=== PATIENT | female | born 2000 | race American Indian/Alaskan Native ===

== ENCOUNTER 2022-01-04 15:17 | Inpatient (IN) | payer MEDICAID ==
[2022-01-04] MEDS ORDERED: MINERAL OIL 30 ML ORAL LIQD PO PRN ×2 (15:53→23:20)
[2022-01-04] MEDS ORDERED: TERBUTALINE 1 MG/1 ML INJ SUB-Q PRN (15:53)
[2022-01-04] MEDS ORDERED: ePHEDrine SULFATE 50 MG/1 ML INJ IV PRN (15:53)
[2022-01-04] MEDS ORDERED: CARBOPROST TROMETHAMINE 250 MCG/1 ML INJ IM PRN (15:53)
[2022-01-04] MEDS ORDERED: LIDOCAINE (2%) 20 MG/1 ML VIAL 20 ML MDV INFILTRATI ONE (15:53)
[2022-01-04] MEDS ORDERED: BUTORPHANOL 2 MG/1 ML INJ IV PRN (15:53)
[2022-01-04] MEDS ORDERED: miSOPROStol 200 MCG TAB PR PRN (15:53)
[2022-01-04] MEDS ORDERED: NalbUPHINE 10 MG/1 ML INJ IV PRN (15:53)
[2022-01-04] MEDS ORDERED: OXYTOCIN 10 UNIT/1 ML INJ IM PRN (15:53)
[2022-01-04] MEDS ORDERED: LOPERAMIDE 2 MG CAP PO PRN (15:53)
[2022-01-04] MEDS ORDERED: ONDANSETRON 4 MG/2 ML INJ IV PRN (15:53)
[2022-01-04] MEDS ORDERED: OXYTOCIN DRIP 30 UNITS/500 ML BAG IV SCH ×2 (16:00)
[2022-01-04] MEDS ORDERED: LACTATED RINGERS 1,000 ML IV SCH ×2 (16:00→23:30)
--- NOTE | 2022-01-04 16:22 | History and Physical Report ---
History of Present Illness Date of examination: 01/04/22 Date of admission: 01/04/22 Chief complaint: pt sent from [facility] for direct admission and induction of labor, Dr. Chen aware History of present illness: EDC Confirmation: 01/22/2022 Past History : 1 Term Births: 0 Premature Births: 0 Living Children: 0 Para: 0 Mult. Births: 0 Prev : 0 Aborta: 0 Elect. Ab: 0 Spont. Ab: 0 Ectopics: 0 Risk Factors: Smoked Tobacco Use: Never smoker Smokeless Tobacco Use: Never Passive Smoke Exposure: no HIV High Risk Behavior: no Alcohol Use: no Drug Use: no Past Medical History Reviewed and updated today: recurrent cyst on chest Past Surgical History: Reviewed and updated today: cyst removal on chest 07/20/2020 Denies any prior history of complications from anesthesia. Denies any history of surgical complications. 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 % No Dietary Counseling Reason: pn yes Past Medical History Anesthesia Complications: negative Anemia: negative Autoimmune Disorder: negative Bleeding Disorder: negative Blood Transfusions: negative Breast Disease: negative Diabetes: negative Heart Disease: negative Hypertension: negative Hepatitis/Liver Disease: negative Kidney Disease/UTI: negative Neurologic/Epilepsy/Migraines: negative Phlebitis/Varicosities: negative Psychiatric: negative Pulmonary Disease/Asthma: negative Thyroid Disease: negative 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 Denies any history of surgical complications. Abnormal PAP: negative, pt reports she has never had a pap, pt requests pap to be performed CASH Exposure: negative Infertility: negative Uterine Anomaly: negative Uterine Surgery (not C/S): negative Other Gynecologic Problems: negative Infection History Hx of STD: none HIV Risk Eval: low risk Hepatitis B Risk Eval: low risk Personal hx. of genital herpes: no Partner hx. of genital herpes: no Rash, Viral, or Febrile illness since last LMP? no Varicella/Chicken Pox Status: Previous Disease TB Risk: no Genetic History Congenital Heart Defect: Mom: no Dad: no Antonella Disease: Mom: no Dad: no Thalassemia Mom: no Dad: no Neural Tube Defect Mom: no Dad: no Down's Syndrome Mom: no Dad: no Francis-Sachs Mom: no Dad: no Sickle Cell Disease/Trait Mom: no Dad: no Hemophilia Mom: no Dad: no Muscular Dystrophy Mom: no Dad: no Cystic Fibrosis Mom: no Dad: no [place] Chorea Mom: no Dad: no Mental Retardation Mom: no Dad: no Fragile X Mom: no Dad: no Other Genetic/Chromosomal Disorder Mom: no Dad: no Child w/other defect Mom: no Dad: no Enviromental Exposures Enviromental Exposures Reviewed Xray Exposure: no Medication, drug, or alcohol use since LMP: no Chemical/Other Exposure: no Exposure to Cat Liter: no Hx of Parvovirus (Fifth Disease): no Occupational Exposure to Children: none Active Medications: vitamins () Current Allergies (reviewed today): VANCOMYCIN (Critical) Past History Past Medical History: no pertinent history, other (see HPI) Past Surgical History: other (see HPI) 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 (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) Family/Genetic History: other (see HPI) Social history: other (see HPI) - Obstetrical History Expected Date of Delivery: 01/22/22 Actual Gestation: 37 Week(s) 3 Day(s) : 1 Para: 0 Hx # Term Pregnancies: 0 Number of Pregnancies: 0 Spontaneous Abortions: 0 Induced : 0 Number of Living Children: 0 Medications and Allergies Allergies Allergy/AdvReac Type Severity Reaction Status Date / Time vancomycin Allergy Itching Verified 01/04/22 18:31 Review of Systems All systems: negative Eyes: no blurred vision, no blind spots Cardiovascular: edema, no chest pain, no shortness of breath Gastrointestinal: no abdominal pain Genitourinary: no vaginal bleeding, no leakage of fluid, no contractions Neurological: no headaches - Physical Exam Lungs: Positive: Normal air movement Abdomen: Positive: normal appearance, soft. Negative: distention, tenderness, guarding Extremities: Positive: edema (2+pitting edema BLE) - Obstetrical Cervical Dilatation: 0 (per RN) Uterine Contraction Pattern: Irregular Uterine Tone Measurement Phase: Resting Results Result Diagrams: 01/04/22 16:12 01/04/22 16:12 All other labs normal. 24hr total urine protein 690 on 01/04/22 Tests: (1) Ct, Ng, Trich vag by UMM ([id number]) Order Note: Clinical Information: SRC:VR SRC:UR Chlamydia by UMM Negative Negative *1 Gonococcus by UMM Negative Negative *2 Trich vag by [facility] Negative Negative *3 Tests: (2) Strep Gp B UMM ([id number]) ! Strep Gp B U[facility] Negative Negative *4 Tests: (1) Profile I ([id number]) HBsAg Screen Negative Negative *1 RPR Non Reactive Non Reactive *2 Rubella Antibodies, IgG 1.42 index Immune >0.99 *3 Non-immune <0.90 Equivocal 0.90 - 0.99 Immune >0.99 ABO Grouping B *4 Rh Factor Positive *5 Please note: Prior records for this patient's ABO / Rh type are not available for additional verification. Antibody Screen Negative Negative *6 WBC [H] 11.6 x10E3/uL 3.4-10.8 *7 RBC [L] 3.70 x10E6/uL 3.77-5.28 *8 Hemoglobin 11.5 g/dL 11.1-15.9 *9 Hematocrit 35.0 % 34.0-46.6 *10 MCV 95 fL 79-97 *11 MCH 31.1 pg 26.6-33.0 *12 MCHC 32.9 g/dL 31.5-35.7 *13 RDW 12.9 % 11.7-15.4 *14 Platelets 312 x10E3/uL 150-450 *15 Neutrophils 76 % Not Estab. *16 Lymphs 15 % Not Estab. *17 Monocytes 8 % Not Estab. *18 Eos 1 % Not Estab. *19 Basos 0 % Not Estab. *20 ! Immature Cells <No Reported Value> *21 Neutrophils (Absolute) [H] 8.7 x10E3/uL 1.4-7.0 *22 Lymphs (Absolute) 1.7 x10E3/uL 0.7-3.1 *23 Monocytes(Absolute) [H] 1.0 x10E3/uL 0.1-0.9 *24 Eos (Absolute) 0.1 x10E3/uL 0.0-0.4 *25 Baso (Absolute) 0.0 x10E3/uL 0.0-0.2 *26 ! Immature Granulocytes 0 % Not Estab. *27 ! Immature Grans (Abs) 0.0 x10E3/uL 0.0-0.1 *28 ! NRBC <No Reported Value> *29 Hematology Comments: <No Reported Value> *30 Tests: (2) HB Solu + Rflx Fra ([id number]) Hemoglobin (Hgb) Solubility Negative Negative *31 Tests: (3) HIV Ab/p24 Ag with Reflex ([id number]) HIV Ab/p24 Ag Screen Non Reactive Non Reactive *32 HIV Negative HIV-1/HIV-2 antibodies and HIV-1 p24 antigen were NOT detected. There is no laboratory evidence of HIV infection. Tests: (4) Gest. Diabetes 1-Hr Screen ([id number]) ! Gestational Diabetes Screen 119 mg/dL 65-139 *33 According to ADA, a glucose threshold of >139 mg/dL after 50-gram load identifies approximately 80% of women with gestational diabetes mellitus, while the sensitivity is further increased to approximately 90% by a threshold of >129 mg/dL. Tests: (5) HCV Antibody reflex to UMM ([id number]) HCV Ab <0.1 s/co ratio 0.0-0.9 *34 Assessment and Plan Pt sent from [facility] office for IOL d/t elevated blood pressures, significant proteinuria, and edema. Admission BP labile. Pt denies MEAD, vision changes, pain, and SOB. Reports positive movement. Preeclampsia risks and precautions reviewed with pt. IOL options discussed. All questions addressed. Pt verbalizes understanding and agrees to proceed with POC. Mat MORATAYA at bedside and reports SVE performed and pt cervix closed. Cervidil order given. Dr. Chen made aware. Plan discussed to start Magnesium Sulfate if BP in severe range. - Patient Problems (1) Pre-eclampsia during in third trimester, antepartum Current Visit: Yes Status: Acute Plan to address problem: monitor BP and ssx for worsening status notify provider with any changes in status and if BP systolic >160 or diastolic >105 (2) 37 weeks gestation of Current Visit: Yes Status: Acute
[2022-01-04 17:07] LABS: Hematocrit 31.2 % (30.3-42.9); Hemoglobin 10.8 gm/dl (10.1-14.3); Mean Corpuscular HGB Conc 35 % (30-34); Mean Corpuscular Volume 93 fl (79-97); Platelet Count 270 K/mm3 (140-440); Red Blood Count 3.35 M/mm3 (3.65-5.03); Red Cell Distribution Width 14.3 % (13.2-15.2)
[2022-01-04 17:27] LABS: Alanine Aminotransferase 6 units/L (7-56); Uric Acid 4.7 mg/dL (3.5-7.6)
[2022-01-04] MEDS ORDERED: DINOPROSTONE 10 MG VAG SUPP VG ONE (18:17)
[2022-01-04 20:37] LABS: Bilirubin,Urine NEG (Negative); Blood,Urine NEG (Negative); Color,Urine Amber (Yellow); Mucus,Urine 3+ /HPF; Urobilinogen,Urine < 2.0 mg/dL (<2.0)
[2022-01-04 20:38] LABS: Protein,Urine >500 mg/dL (Negative)
[2022-01-04 20:42] LABS: Creatinine,Urine 346.9 mg/dL (0.1-20.0)
[2022-01-04 20:55] LABS: Protein/Creatinine Ratio,Urine 0.81
[2022-01-04] MEDS ORDERED: MAGNESIUM SULFATE 4 GM/100 ML BAG IV ONE (23:14)
[2022-01-04] MEDS ORDERED: CALCIUM GLUCONATE 1000 MG/10 ML INJ IV ONE (23:14)
[2022-01-04] MEDS ORDERED: PROMETHAZINE 25 MG TAB PO PRN (23:21)
[2022-01-04] MEDS ORDERED: NALOXONE 0.4 MG/1 ML INJ IV PRN (23:21)
[2022-01-04] MEDS ORDERED: MAGNESIUM SULFATE 40GM/1000ML 40 GM/1,000 ML BAG IV ONE (23:22)
[2022-01-05] MEDS: fentaNYL 100 MCG/2 ML INJ IV PRN ×2 (00:18→17:15)
[2022-01-05] MEDS: MAGNESIUM SULFATE 40GM/1000ML 40 GM/1,000 ML BAG IV SCH ×2 (00:22→22:06)
[2022-01-05] MEDS: hydrALAZINE 20 MG/1 ML INJ IV PRN ×3 (00:22→06:33)
[2022-01-05] MEDS ORDERED: OXYTOCIN DRIP 30 UNITS/500 ML BAG IV SCH (07:00)
[2022-01-05] MEDS: ACETAMINOPHEN 325 MG TAB PO PRN ×3 (07:26→22:03)
--- NOTE | 2022-01-05 08:27 | Progress Note ---
Assessment and Plan cervidil removed by RN, SVE remains closed. ctx too close for cytotec. pt reports MEAD earlier now resolved with tylenol. denies visual changes or epigastric pain. discussed serial induction expectations. All questions addressed. P: Light breakfast as tolerated Pitocin per protocol Continue mag 2gm/hr Labetalol 300mg PO BID mag level q6hr Strict I&O reassess PRN - Patient Problems (1) 37 weeks gestation of Current Visit: Yes Status: Acute (2) Pre-eclampsia during in third trimester, antepartum Current Visit: Yes Status: Acute Subjective - Subjective Date of service: 01/05/22 Principal diagnosis: IUP @ 37+4; IOL for pre-e Patient reports: movement normal, contractions, no loss of fluid, no vaginal bleeding Objective - Vital Signs Vital Signs: Vital Signs - 12hr 01/04/22 01/04/22 01/04/22 20:20 20:23 20:25 Temperature Pulse Rate 89 91 H 98 H Respiratory Rate Blood Pressure 143/78 O2 Sat by Pulse 100 100 Oximetry O2 Sat by Pulse Oximetry [ Bilateral] 01/04/22 01/04/22 01/04/22 20:30 20:35 20:39 Temperature Pulse Rate 92 H 91 H 94 H Respiratory Rate Blood Pressure O2 Sat by Pulse 100 100 91 Oximetry O2 Sat by Pulse Oximetry [ Bilateral] 01/04/22 01/04/22 01/04/22 20:40 20:45 20:50 Temperature Pulse Rate 88 86 89 Respiratory Rate Blood Pressure O2 Sat by Pulse 100 99 99 Oximetry O2 Sat by Pulse Oximetry [ Bilateral] 01/04/22 01/04/22 01/04/22 20:53 20:55 21:02 Temperature Pulse Rate 87 86 70 Respiratory Rate Blood Pressure 145/94 O2 Sat by Pulse 99 78 L Oximetry O2 Sat by Pulse Oximetry [ Bilateral] 01/04/22 01/04/22 01/04/22 21:03 21:08 21:13 Temperature Pulse Rate 119 H 98 H 104 H Respiratory Rate Blood Pressure O2 Sat by Pulse 97 100 100 Oximetry O2 Sat by Pulse Oximetry [ Bilateral] 01/04/22 01/04/22 01/04/22 21:18 21:23 21:28 Temperature Pulse Rate 101 H 91 H 91 H Respiratory Rate Blood Pressure 143/97 O2 Sat by Pulse 100 97 98 Oximetry O2 Sat by Pulse Oximetry [ Bilateral] 01/04/22 01/04/22 01/04/22 21:33 21:38 21:43 Temperature Pulse Rate 90 93 H 98 H Respiratory Rate Blood Pressure O2 Sat by Pulse 98 97 98 Oximetry O2 Sat by Pulse Oximetry [ Bilateral] 01/04/22 01/04/22 01/04/22 21:48 21:53 21:54 Temperature Pulse Rate 93 H 103 H 99 H Respiratory Rate Blood Pressure 157/98 O2 Sat by Pulse 99 100 Oximetry O2 Sat by Pulse Oximetry [ Bilateral] 01/04/22 01/04/22 01/04/22 21:58 22:03 22:08 Temperature Pulse Rate 102 H 98 H 101 H Respiratory Rate Blood Pressure O2 Sat by Pulse 99 100 97 Oximetry O2 Sat by Pulse Oximetry [ Bilateral] 01/04/22 01/04/22 01/04/22 22:13 22:18 22:23 Temperature Pulse Rate 94 H 99 H 98 H Respiratory Rate Blood Pressure O2 Sat by Pulse 98 98 98 Oximetry O2 Sat by Pulse Oximetry [ Bilateral] 01/04/22 01/04/22 01/04/22 22:24 22:28 22:33 Temperature Pulse Rate 101 H 102 H 110 H Respiratory Rate Blood Pressure 142/97 O2 Sat by Pulse 98 98 Oximetry O2 Sat by Pulse Oximetry [ Bilateral] 01/04/22 01/04/22 01/04/22 22:38 22:43 22:48 Temperature Pulse Rate 98 H 104 H 106 H Respiratory Rate Blood Pressure O2 Sat by Pulse 99 98 98 Oximetry O2 Sat by Pulse Oximetry [ Bilateral] 01/04/22 01/04/22 01/04/22 22:53 22:54 22:58 Temperature Pulse Rate 99 H 96 H 105 H Respiratory Rate Blood Pressure 162/104 158/104 O2 Sat by Pulse 97 97 Oximetry O2 Sat by Pulse Oximetry [ Bilateral] 01/04/22 01/04/22 01/04/22 23:03 23:08 23:13 Temperature Pulse Rate 103 H 103 H 109 H Respiratory Rate Blood Pressure O2 Sat by Pulse 98 98 98 Oximetry O2 Sat by Pulse Oximetry [ Bilateral] 01/04/22 01/04/22 01/04/22 23:16 23:18 23:23 Temperature Pulse Rate 102 H 111 H 105 H Respiratory Rate Blood Pressure 175/116 O2 Sat by Pulse 97 97 Oximetry O2 Sat by Pulse Oximetry [ Bilateral] 01/04/22 01/04/22 01/04/22 23:28 23:33 23:38 Temperature Pulse Rate 103 H 111 H 112 H Respiratory Rate Blood Pressure O2 Sat by Pulse 98 99 99 Oximetry O2 Sat by Pulse Oximetry [ Bilateral] 01/04/22 01/04/22 01/04/22 23:43 23:48 23:53 Temperature Pulse Rate 108 H 109 H 111 H Respiratory Rate Blood Pressure 167/108 O2 Sat by Pulse 98 97 97 Oximetry O2 Sat by Pulse Oximetry [ Bilateral] 01/04/22 01/05/22 01/05/22 23:58 00:03 00:07 Temperature Pulse Rate 106 H 101 H 110 H Respiratory Rate Blood Pressure 178/100 O2 Sat by Pulse 98 100 Oximetry O2 Sat by Pulse Oximetry [ Bilateral] 01/05/22 01/05/22 01/05/22 00:08 00:12 00:13 Temperature Pulse Rate 110 H 111 H 105 H Respiratory Rate Blood Pressure 180/117 O2 Sat by Pulse 98 96 Oximetry O2 Sat by Pulse Oximetry [ Bilateral] 01/05/22 01/05/22 01/05/22 00:17 00:18 00:22 Temperature Pulse Rate 112 H 105 H 103 H Respiratory Rate Blood Pressure 167/119 175/105 O2 Sat by Pulse 96 Oximetry O2 Sat by Pulse Oximetry [ Bilateral] 01/05/22 01/05/22 01/05/22 00:23 00:27 00:28 Temperature 98.8 F Pulse Rate 103 H 102 H 101 H Respiratory Rate Blood Pressure 165/96 157/91 O2 Sat by Pulse 97 96 Oximetry O2 Sat by Pulse Oximetry [ Bilateral] 01/05/22 01/05/22 01/05/22 00:33 00:38 00:43 Temperature Pulse Rate 108 H 96 H 94 H Respiratory Rate Blood Pressure 159/83 O2 Sat by Pulse 97 98 96 Oximetry O2 Sat by Pulse Oximetry [ Bilateral] 01/05/22 01/05/22 01/05/22 00:48 00:53 00:58 Temperature Pulse Rate 102 H 99 H 93 H Respiratory Rate Blood Pressure O2 Sat by Pulse 97 97 94 Oximetry O2 Sat by Pulse Oximetry [ Bilateral] 01/05/22 01/05/22 01/05/22 01:00 01:03 01:08 Temperature Pulse Rate 100 H 97 H 95 H Respiratory Rate Blood Pressure 182/87 O2 Sat by Pulse 98 97 Oximetry O2 Sat by Pulse Oximetry [ Bilateral] 01/05/22 01/05/22 01/05/22 01:13 01:18 01:23 Temperature Pulse Rate 100 H 104 H 103 H Respiratory Rate Blood Pressure 144/73 O2 Sat by Pulse 97 99 99 Oximetry O2 Sat by Pulse Oximetry [ Bilateral] 01/05/22 01/05/22 01/05/22 01:28 01:33 01:38 Temperature Pulse Rate 99 H 96 H 108 H Respiratory Rate Blood Pressure 148/83 O2 Sat by Pulse 98 98 98 Oximetry O2 Sat by Pulse Oximetry [ Bilateral] 01/05/22 01/05/22 01/05/22 01:43 01:48 01:53 Temperature Pulse Rate 100 H 106 H 105 H Respiratory Rate Blood Pressure 148/83 O2 Sat by Pulse 97 98 98 Oximetry O2 Sat by Pulse Oximetry [ Bilateral] 01/05/22 01/05/22 01/05/22 01:58 02:00 02:03 Temperature Pulse Rate 107 H 104 H 104 H Respiratory Rate Blood Pressure 132/80 O2 Sat by Pulse 98 97 Oximetry O2 Sat by Pulse Oximetry [ Bilateral] 01/05/22 01/05/22 01/05/22 02:08 02:13 02:18 Temperature Pulse Rate 99 H 101 H 101 H Respiratory Rate Blood Pressure 136/78 O2 Sat by Pulse 97 97 97 Oximetry O2 Sat by Pulse Oximetry [ Bilateral] 01/05/22 01/05/22 01/05/22 02:23 02:28 02:29 Temperature Pulse Rate 101 H 101 H 107 H Respiratory Rate Blood Pressure 136/87 O2 Sat by Pulse 96 97 Oximetry O2 Sat by Pulse Oximetry [ Bilateral] 01/05/22 01/05/22 01/05/22 02:33 02:38 02:43 Temperature Pulse Rate 108 H 107 H 112 H Respiratory Rate Blood Pressure O2 Sat by Pulse 99 99 98 Oximetry O2 Sat by Pulse Oximetry [ Bilateral] 01/05/22 01/05/22 01/05/22 02:44 02:48 02:53 Temperature Pulse Rate 109 H 103 H 106 H Respiratory Rate Blood Pressure 138/83 O2 Sat by Pulse 94 98 97 Oximetry O2 Sat by Pulse Oximetry [ Bilateral] 01/05/22 01/05/2201/05/22 02:58 03:00 03:03 Temperature Pulse Rate 105 H 103 H 99 H Respiratory Rate Blood Pressure 165/101 O2 Sat by Pulse 99 94 98 Oximetry O2 Sat by Pulse Oximetry [ Bilateral] 01/05/22 01/05/22 01/05/22 03:08 03:13 03:14 Temperature Pulse Rate 97 H 100 H 108 H Respiratory Rate Blood Pressure 134/77 O2 Sat by Pulse 97 98 Oximetry O2 Sat by Pulse Oximetry [ Bilateral] 01/05/22 01/05/22 01/05/22 03:18 03:23 03:28 Temperature Pulse Rate 109 H 102 H 105 H Respiratory Rate Blood Pressure 133/79 O2 Sat by Pulse 98 97 97 Oximetry O2 Sat by Pulse Oximetry [ Bilateral] 01/05/22 01/05/22 01/05/22 03:33 03:38 03:43 Temperature Pulse Rate 104 H 100 H 109 H Respiratory Rate Blood Pressure 140/73 O2 Sat by Pulse 97 97 97 Oximetry O2 Sat by Pulse Oximetry [ Bilateral] 01/05/22 01/05/22 01/05/22 03:48 03:53 03:58 Temperature Pulse Rate 98 H 107 H 107 H Respiratory Rate Blood Pressure O2 Sat by Pulse 97 98 98 Oximetry O2 Sat by Pulse Oximetry [ Bilateral] 01/05/22 01/05/22 01/05/22 03:59 04:03 04:08 Temperature Pulse Rate 101 H 108 H 104 H Respiratory Rate Blood Pressure 147/83 O2 Sat by Pulse 100 98 Oximetry O2 Sat by Pulse Oximetry [ Bilateral] 01/05/22 01/05/22 01/05/22 04:13 04:15 04:18 Temperature Pulse Rate 89 92 H 96 H Respiratory Rate Blood Pressure 162/98 O2 Sat by Pulse 98 98 Oximetry O2 Sat by Pulse Oximetry [ Bilateral] 01/05/22 01/05/22 01/05/22 04:23 04:27 04:28 Temperature Pulse Rate 103 H 108 H 110 H Respiratory Rate Blood Pressure O2 Sat by Pulse 99 92 98 Oximetry O2 Sat by Pulse Oximetry [ Bilateral] 01/05/22 01/05/22 01/05/22 04:29 04:33 04:38 Temperature Pulse Rate 105 H 98 H 100 H Respiratory Rate Blood Pressure 148/87 O2 Sat by Pulse 98 97 Oximetry O2 Sat by Pulse Oximetry [ Bilateral] 01/05/22 01/05/22 01/05/22 04:43 04:48 04:53 Temperature Pulse Rate 100 H 104 H 103 H Respiratory Rate Blood Pressure 144/86 O2 Sat by Pulse 97 97 97 Oximetry O2 Sat by Pulse Oximetry [ Bilateral] 01/05/22 01/05/22 01/05/22 04:58 05:03 05:08 Temperature Pulse Rate 101 H 103 H 116 H Respiratory Rate Blood Pressure 146/85 O2 Sat by Pulse 97 97 98 Oximetry O2 Sat by Pulse Oximetry [ Bilateral] 01/05/22 01/05/22 01/05/22 05:13 05:18 05:23 Temperature Pulse Rate 97 H 102 H 99 H Respiratory Rate Blood Pressure 151/95 O2 Sat by Pulse 98 97 97 Oximetry O2 Sat by Pulse Oximetry [ Bilateral] 01/05/22 01/05/22 01/05/22 05:28 05:33 05:38 Temperature Pulse Rate 103 H 103 H 107 H Respiratory Rate Blood Pressure 145/90 O2 Sat by Pulse 98 99 97 Oximetry O2 Sat by Pulse Oximetry [ Bilateral] 01/05/22 01/05/22 01/05/22 05:43 05:48 05:53 Temperature Pulse Rate 108 H 102 H 108 H Respiratory Rate Blood Pressure 139/84 O2 Sat by Pulse 97 97 98 Oximetry O2 Sat by Pulse Oximetry [ Bilateral] 01/05/22 01/05/22 01/05/22 05:58 05:59 06:03 Temperature Pulse Rate 107 H 96 H 97 H Respiratory Rate Blood Pressure 164/107 O2 Sat by Pulse 99 92 97 Oximetry O2 Sat by Pulse Oximetry [ Bilateral] 01/05/22 01/05/22 01/05/22 06:08 06:13 06:14 Temperature Pulse Rate 96 H 101 H 101 H Respiratory Rate Blood Pressure 164/103 O2 Sat by Pulse 97 97 Oximetry O2 Sat by Pulse Oximetry [ Bilateral] 01/05/22 01/05/22 01/05/22 06:18 06:23 06:28 Temperature Pulse Rate 98 H 101 H 104 H Respiratory Rate Blood Pressure O2 Sat by Pulse 97 97 96 Oximetry O2 Sat by Pulse Oximetry [ Bilateral] 01/05/22 01/05/22 01/05/22 06:29 06:33 06:38 Temperature Pulse Rate 103 H 108 H 103 H Respiratory Rate Blood Pressure 175/93 O2 Sat by Pulse 88 98 97 Oximetry O2 Sat by Pulse Oximetry [ Bilateral] 01/05/22 01/05/22 01/05/22 06:43 06:48 06:53 Temperature Pulse Rate 100 H 107 H 116 H Respiratory Rate Blood Pressure 165/99 O2 Sat by Pulse 96 87 98 Oximetry O2 Sat by Pulse Oximetry [ Bilateral] 01/05/22 01/05/22 01/05/22 06:54 06:55 06:58 Temperature Pulse Rate 110 H Respiratory Rate Blood Pressure 165/99 165/99 O2 Sat by Pulse 98 Oximetry O2 Sat by Pulse Oximetry [ Bilateral] 01/05/22 01/05/22 01/05/22 07:00 07:03 07:08 Temperature 98.3 F Pulse Rate 125 H 111 H 109 H Respiratory Rate Blood Pressure 154/102 O2 Sat by Pulse 97 98 Oximetry O2 Sat by Pulse 98 Oximetry [ Bilateral] 01/05/22 01/05/22 01/05/22 07:12 07:13 07:14 Temperature Pulse Rate 112 H 109 H Respiratory 14 Rate Blood Pressure 141/88 O2 Sat by Pulse 98 98 Oximetry O2 Sat by Pulse Oximetry [ Bilateral] 01/05/22 01/05/22 01/05/22 07:18 07:23 07:28 Temperature Pulse Rate 109 H 112 H 113 H Respiratory Rate Blood Pressure O2 Sat by Pulse 98 99 97 Oximetry O2 Sat by Pulse Oximetry [ Bilateral] 01/05/22 01/05/22 01/05/22 07:29 07:33 07:38 Temperature Pulse Rate 108 H 107 H 122 H Respiratory Rate Blood Pressure 139/93 O2 Sat by Pulse 97 99 Oximetry O2 Sat by Pulse Oximetry [ Bilateral] 01/05/22 01/05/22 01/05/22 07:43 07:48 07:53 Temperature Pulse Rate 112 H 111 H 108 H Respiratory Rate Blood Pressure 135/73 O2 Sat by Pulse 92 97 97 Oximetry O2 Sat by Pulse Oximetry [ Bilateral] 01/05/22 01/05/22 01/05/22 07:58 08:03 08:05 Temperature Pulse Rate 104 H 106 H Respiratory 14 Rate Blood Pressure 135/77 O2 Sat by Pulse 98 97 97 Oximetry O2 Sat by Pulse Oximetry [ Bilateral] 01/05/22 01/05/22 01/05/22 08:08 08:13 08:18 Temperature Pulse Rate 116 H 107 H 103 H Respiratory Rate Blood Pressure 135/86 O2 Sat by Pulse 97 93 97 Oximetry O2 Sat by Pulse Oximetry [ Bilateral] - Exam Cardiovascular: Regular rate Lungs: Normal air movement Abdomen: Present: normal appearance, soft Vulva: both: normal Uterus: Present: normal, fundal height above umbilicus FHR: category 1 Uterine Contraction Monitor Mode: External Cervical Dilatation: 0 Uterine Contraction Pattern: Regular Uterine Tone Measurement Phase: Contraction Uterine Contraction Intensity: Mild Extremities: normal - Labs Labs: Abnormal Labs 01/04/22 01/04/22 01/04/22 16:12 16:12 19:28 RBC 3.35 L MCHC 35 H Creatinine 0.5 L Magnesium ALT 6 L Lactate Dehydrogenase 295 H Urine WBC (Auto) 7.0 H Urine Creatinine Urine Total Protein 01/04/22 01/05/22 19:28 06:50 RBC MCHC Creatinine Magnesium 4.50 H ALT Lactate Dehydrogenase Urine WBC (Auto) Urine Creatinine 346.9 H Urine Total Protein 282 H Laboratory Results - last 24 hr 01/04/22 01/04/22 01/04/22 16:12 16:12 16:12 WBC 10.7 RBC 3.35 L Hgb 10.8 Hct 31.2 MCV 93 MCH 32 MCHC 35 H RDW 14.3 Plt Count 270 Creatinine 0.5 L Estimated GFR > 60 Uric Acid 4.7 Magnesium AST 20 ALT 6 L Lactate Dehydrogenase 295 H Urine Color Urine Turbidity Urine pH Ur Specific [employer] Urine Protein Urine Glucose (UA) Urine Ketones Urine Blood Urine Nitrite Urine Bilirubin Urine Urobilinogen Ur Leukocyte Esterase Urine WBC (Auto) Urine RBC (Auto) U Epithel Cells (Auto) Urine Mucus Urine Yeast (Budding) Urine Creatinine Protein/Creatinin Ratio Urine Total Protein Syphilis IgG/IgM Ab Nonreactive Blood Type Antibody Screen 01/04/22 01/04/22 01/04/22 16:12 19:28 19:28 WBC RBC Hgb Hct MCV MCH MCHC RDW Plt Count Creatinine Estimated GFR Uric Acid Magnesium AST ALT Lactate Dehydrogenase Urine Color [place] Urine Turbidity Slightly-cloudy Urine pH 5.0 Ur Specific [employer] 1.023 Urine Protein >500 Urine Glucose (UA) Neg Urine Ketones Tr Urine Blood Neg Urine Nitrite Neg Urine Bilirubin Neg Urine Urobilinogen < 2.0 Ur Leukocyte Esterase Mod Urine WBC (Auto) 7.0 H Urine RBC (Auto) 2.0 U Epithel Cells (Auto) 6.0 Urine Mucus 3+ Urine Yeast (Budding) Few Urine Creatinine 346.9 H Protein/Creatinin Ratio 0.81 Urine Total Protein 282 H Syphilis IgG/IgM Ab Blood Type B POSITIVE Antibody Screen Negative 01/05/22 06:50 WBC RBC Hgb Hct MCV MCH MCHC RDW Plt Count Creatinine Estimated GFR Uric Acid Magnesium 4.50 H AST ALT Lactate Dehydrogenase Urine Color Urine Turbidity Urine pH Ur Specific [employer] Urine Protein Urine Glucose (UA) Urine Ketones Urine Blood Urine Nitrite Urine Bilirubin Urine Urobilinogen Ur Leukocyte Esterase Urine WBC (Auto) Urine RBC (Auto) U Epithel Cells (Auto) Urine Mucus Urine Yeast (Budding) Urine Creatinine Protein/Creatinin Ratio Urine Total Protein Syphilis IgG/IgM Ab Blood Type Antibody Screen
--- NOTE | 2022-01-05 11:22 | Event Note ---
Date: 01/05/22 FHT tracing reviewed remotely, CAT 1 with toco tracing ctx q2-4 minutes. B/P 120-140/50-80's. per RN, patient denies need for pain inventions at this time. Will continue current management at this time.
--- NOTE | 2022-01-05 16:57 | Progress Note ---
Assessment and Plan SVE 1.5/50/-1, midposition and soft. discussed placement of cooks cath, pt agrees with plan. Attempted Cooks cath placement x2 unsuccessful, balloon passed into inner os of cervix both times, ctx pressure and head very well applied to cervix made keeping balloon in cervix during inflation difficult. Will give patient break from pitocin, allow dinner and then reassess next method based on ctx pattern. Noted inaccurate mag level from earlier today and redraw WNL. b/p's reviewed - will increase labetalol to 300mg TID and rn to give dose of hydralizine now. Dr. Carl updated. - Patient Problems (1) 37 weeks gestation of Current Visit: Yes Status: Acute (2) Pre-eclampsia during in third trimester, antepartum Current Visit: Yes Status: Acute Subjective - Subjective Date of service: 01/05/22 Principal diagnosis: IUP @ 37+4; IOL for pre-e Patient reports: movement normal, contractions, no loss of fluid, no vaginal bleeding Objective - Vital Signs Vital Signs: Vital Signs - 12hr 01/05/22 01/05/22 01/05/22 04:53 04:58 05:03 Temperature Pulse Rate 103 H 101 H 103 H Respiratory Rate Blood Pressure 146/85 O2 Sat by Pulse 97 97 97 Oximetry O2 Sat by Pulse Oximetry [ Bilateral] 01/05/22 01/05/22 01/05/22 05:08 05:13 05:18 Temperature Pulse Rate 116 H 97 H 102 H Respiratory Rate Blood Pressure 151/95 O2 Sat by Pulse 98 98 97 Oximetry O2 Sat by Pulse Oximetry [ Bilateral] 01/05/22 01/05/22 01/05/22 05:23 05:28 05:33 Temperature Pulse Rate 99 H 103 H 103 H Respiratory Rate Blood Pressure 145/90 O2 Sat by Pulse 97 98 99 Oximetry O2 Sat by Pulse Oximetry [ Bilateral] 01/05/22 01/05/22 01/05/22 05:38 05:43 05:48 Temperature Pulse Rate 107 H 108 H 102 H Respiratory Rate Blood Pressure 139/84 O2 Sat by Pulse 97 97 97 Oximetry O2 Sat by Pulse Oximetry [ Bilateral] 01/05/22 01/05/22 01/05/22 05:53 05:58 05:59 Temperature Pulse Rate 108 H 107 H 96 H Respiratory Rate Blood Pressure 164/107 O2 Sat by Pulse 98 99 92 Oximetry O2 Sat by Pulse Oximetry [ Bilateral] 01/05/22 01/05/22 01/05/22 06:03 06:08 06:13 Temperature Pulse Rate 97 H 96 H 101 H Respiratory Rate Blood Pressure O2 Sat by Pulse 97 97 97 Oximetry O2 Sat by Pulse Oximetry [ Bilateral] 01/05/22 01/05/22 01/05/22 06:14 06:18 06:23 Temperature Pulse Rate 101 H 98 H 101 H Respiratory Rate Blood Pressure 164/103 O2 Sat by Pulse 97 97 Oximetry O2 Sat by Pulse Oximetry [ Bilateral] 01/05/22 01/05/22 01/05/22 06:28 06:29 06:33 Temperature Pulse Rate 104 H 103 H 108 H Respiratory Rate Blood Pressure 175/93 O2 Sat by Pulse 96 88 98 Oximetry O2 Sat by Pulse Oximetry [ Bilateral] 01/05/22 01/05/22 01/05/22 06:38 06:43 06:48 Temperature Pulse Rate 103 H 100 H 107 H Respiratory Rate Blood Pressure 165/99 O2 Sat by Pulse 97 96 87 Oximetry O2 Sat by Pulse Oximetry [ Bilateral] 01/05/22 01/05/22 01/05/22 06:53 06:54 06:55 Temperature Pulse Rate 116 H Respiratory Rate Blood Pressure 165/99 165/99 O2 Sat by Pulse 98 Oximetry O2 Sat by Pulse Oximetry [ Bilateral] 01/05/22 01/05/22 01/05/22 06:58 07:00 07:03 Temperature 98.3 F Pulse Rate 110 H 125 H 111 H Respiratory Rate Blood Pressure 154/102 O2 Sat by Pulse 98 97 Oximetry O2 Sat by Pulse 98 Oximetry [ Bilateral] 01/05/22 01/05/22 01/05/22 07:08 07:12 07:13 Temperature Pulse Rate 109 H 112 H Respiratory 14 Rate Blood Pressure O2 Sat by Pulse 98 98 98 Oximetry O2 Sat by Pulse Oximetry [ Bilateral] 01/05/22 01/05/22 01/05/22 07:14 07:18 07:23 Temperature Pulse Rate 109 H 109 H 112 H Respiratory Rate Blood Pressure 141/88 O2 Sat by Pulse 98 99 Oximetry O2 Sat by Pulse Oximetry [ Bilateral] 01/05/22 01/05/22 01/05/22 07:28 07:29 07:33 Temperature Pulse Rate 113 H 108 H 107 H Respiratory Rate Blood Pressure 139/93 O2 Sat by Pulse 97 97 Oximetry O2 Sat by Pulse Oximetry [ Bilateral] 01/05/22 01/05/22 01/05/22 07:38 07:43 07:48 Temperature Pulse Rate 122 H 112 H 111 H Respiratory Rate Blood Pressure 135/73 O2 Sat by Pulse 99 92 97 Oximetry O2 Sat by Pulse Oximetry [ Bilateral] 01/05/22 01/05/22 01/05/22 07:53 07:58 08:03 Temperature Pulse Rate 108 H 104 H 106 H Respiratory Rate Blood Pressure 135/77 O2 Sat by Pulse 97 98 97 Oximetry O2 Sat by Pulse Oximetry [ Bilateral] 01/05/22 01/05/22 01/05/22 08:05 08:08 08:13 Temperature Pulse Rate 116 H 107 H Respiratory 14 Rate Blood Pressure 135/86 O2 Sat by Pulse 97 97 93 Oximetry O2 Sat by Pulse Oximetry [ Bilateral] 01/05/22 01/05/22 01/05/22 08:18 08:23 08:28 Temperature Pulse Rate 103 H 107 H 101 H Respiratory Rate Blood Pressure 137/83 O2 Sat by Pulse 97 97 97 Oximetry O2 Sat by Pulse Oximetry [ Bilateral] 01/05/22 01/05/22 01/05/22 08:33 08:38 08:43 Temperature Pulse Rate 102 H 103 H 103 H Respiratory Rate Blood Pressure 138/80 O2 Sat by Pulse 97 98 99 Oximetry O2 Sat by Pulse Oximetry [ Bilateral] 01/05/22 01/05/22 01/05/22 08:48 08:53 08:58 Temperature Pulse Rate 104 H 101 H 102 H Respiratory Rate Blood Pressure 137/84 O2 Sat by Pulse 97 98 97 Oximetry O2 Sat by Pulse Oximetry [ Bilateral] 01/05/22 01/05/22 01/05/22 09:03 09:05 09:08 Temperature Pulse Rate 98 H 103 H Respiratory Rate Blood Pressure O2 Sat by Pulse 97 97 98 Oximetry O2 Sat by Pulse Oximetry [ Bilateral] 01/05/22 01/05/22 01/05/22 09:13 09:14 09:18 Temperature Pulse Rate 103 H 103 H 105 H Respiratory Rate Blood Pressure 143/86 O2 Sat by Pulse 97 97 Oximetry O2 Sat by Pulse Oximetry [ Bilateral] 01/05/22 01/05/22 01/05/22 09:23 09:28 09:33 Temperature Pulse Rate 97 H 96 H 100 H Respiratory Rate Blood Pressure 128/79 O2 Sat by Pulse 97 97 97 Oximetry O2 Sat by Pulse Oximetry [ Bilateral] 01/05/22 01/05/22 01/05/22 09:38 09:43 09:48 Temperature Pulse Rate 105 H 114 H 117 H Respiratory Rate Blood Pressure 133/81 O2 Sat by Pulse 97 97 98 Oximetry O2 Sat by Pulse Oximetry [ Bilateral] 01/05/22 01/05/22 01/05/22 09:53 09:58 10:03 Temperature Pulse Rate 115 H 112 H 111 H Respiratory Rate Blood Pressure 139/84 O2 Sat by Pulse 97 98 98 Oximetry O2 Sat by Pulse Oximetry [ Bilateral] 01/05/22 01/05/22 01/05/22 10:05 10:08 10:13 Temperature Pulse Rate 108 H 111 H Respiratory Rate Blood Pressure O2 Sat by Pulse 98 95 97 Oximetry O2 Sat by Pulse Oximetry [ Bilateral] 01/05/22 01/05/22 01/05/22 10:15 10:18 10:23 Temperature Pulse Rate 107 H 106 H 107 H Respiratory Rate Blood Pressure 124/59 O2 Sat by Pulse 92 97 97 Oximetry O2 Sat by Pulse Oximetry [ Bilateral] 01/05/22 01/05/22 01/05/22 10:28 10:33 10:38 Temperature Pulse Rate 104 H 106 H 104 H Respiratory Rate Blood Pressure 127/58 O2 Sat by Pulse 96 97 96 Oximetry O2 Sat by Pulse Oximetry [ Bilateral] 01/05/22 01/05/22 01/05/22 10:43 10:45 10:48 Temperature Pulse Rate 101 H 104 H 104 H Respiratory Rate Blood Pressure 127/71 O2 Sat by Pulse 98 97 Oximetry O2 Sat by Pulse Oximetry [ Bilateral] 01/05/22 01/05/22 01/05/22 10:53 10:58 11:03 Temperature Pulse Rate 104 H 102 H 104 H Respiratory Rate Blood Pressure 127/68 O2 Sat by Pulse 97 96 97 Oximetry O2 Sat by Pulse Oximetry [ Bilateral] 01/05/22 01/05/22 01/05/22 11:05 11:08 11:13 Temperature 98.4 F Pulse Rate 109 H 110 H Respiratory Rate Blood Pressure 129/62 O2 Sat by Pulse 97 97 96 Oximetry O2 Sat by Pulse Oximetry [ Bilateral] 01/05/22 01/05/22 01/05/22 11:18 11:23 11:28 Temperature Pulse Rate 106 H 97 H 98 H Respiratory Rate Blood Pressure O2 Sat by Pulse 97 98 98 Oximetry O2 Sat by Pulse Oximetry [ Bilateral] 01/05/22 01/05/22 01/05/22 11:29 11:33 11:38 Temperature Pulse Rate 98 H 97 H 98 H Respiratory Rate Blood Pressure 133/77 O2 Sat by Pulse 97 98 Oximetry O2 Sat by Pulse Oximetry [ Bilateral] 01/05/22 01/05/22 01/05/22 11:43 11:48 11:53 Temperature Pulse Rate 100 H 97 H 109 H Respiratory Rate Blood Pressure 140/78 O2 Sat by Pulse 96 97 98 Oximetry O2 Sat by Pulse Oximetry [ Bilateral] 01/05/22 01/05/22 01/05/22 11:58 11:59 12:03 Temperature Pulse Rate 114 H 100 H 101 H Respiratory Rate Blood Pressure 135/83 O2 Sat by Pulse 97 95 Oximetry O2 Sat by Pulse Oximetry [ Bilateral] 01/05/22 01/05/22 01/05/22 12:05 12:08 12:13 Temperature Pulse Rate 96 H 101 H Respiratory Rate Blood Pressure O2 Sat by Pulse 95 96 96 Oximetry O2 Sat by Pulse Oximetry [ Bilateral] 01/05/22 01/05/22 01/05/22 12:14 12:18 12:23 Temperature Pulse Rate 102 H 116 H 100 H Respiratory Rate Blood Pressure 137/80 O2 Sat by Pulse 93 97 97 Oximetry O2 Sat by Pulse Oximetry [ Bilateral] 01/05/22 01/05/22 01/05/22 12:28 12:29 12:33 Temperature Pulse Rate 102 H 100 H 104 H Respiratory Rate Blood Pressure 138/82 O2 Sat by Pulse 96 96 Oximetry O2 Sat by Pulse Oximetry [ Bilateral] 01/05/22 01/05/22 01/05/22 12:38 12:43 12:44 Temperature Pulse Rate 103 H 113 H 105 H Respiratory Rate Blood Pressure 133/84 O2 Sat by Pulse 97 98 Oximetry O2 Sat by Pulse Oximetry [ Bilateral] 01/05/22 01/05/22 01/05/22 12:48 12:53 12:58 Temperature Pulse Rate 107 H 107 H 112 H Respiratory Rate Blood Pressure 125/76 O2 Sat by Pulse 97 98 97 Oximetry O2 Sat by Pulse Oximetry [ Bilateral] 01/05/22 01/05/22 01/05/22 13:03 13:06 13:08 Temperature Pulse Rate 102 H 107 H Respiratory Rate Blood Pressure O2 Sat by Pulse 98 98 97 Oximetry O2 Sat by Pulse Oximetry [ Bilateral] 01/05/22 01/05/22 01/05/22 13:13 13:18 13:23 Temperature Pulse Rate 107 H 112 H 108 H Respiratory Rate Blood Pressure 120/63 O2 Sat by Pulse 95 98 98 Oximetry O2 Sat by Pulse Oximetry [ Bilateral] 01/05/22 01/05/22 01/05/22 13:28 13:29 13:33 Temperature Pulse Rate 101 H 102 H 102 H Respiratory Rate Blood Pressure 133/83 O2 Sat by Pulse 97 97 Oximetry O2 Sat by Pulse Oximetry [ Bilateral] 01/05/22 01/05/22 01/05/22 13:34 13:38 13:43 Temperature Pulse Rate 105 H 104 H Respiratory 14 Rate Blood Pressure O2 Sat by Pulse 98 97 Oximetry O2 Sat by Pulse Oximetry [ Bilateral] 01/05/22 01/05/22 01/05/22 13:44 13:48 13:53 Temperature Pulse Rate 108 H 99 H 101 H Respiratory Rate Blood Pressure 126/78 O2 Sat by Pulse 97 97 Oximetry O2 Sat by Pulse Oximetry [ Bilateral] 01/05/22 01/05/22 01/05/22 13:58 14:03 14:08 Temperature Pulse Rate 100 H 98 H 100 H Respiratory Rate Blood Pressure 138/86 O2 Sat by Pulse 97 96 96 Oximetry O2 Sat by Pulse Oximetry [ Bilateral] 01/05/22 01/05/22 01/05/22 14:13 14:14 14:18 Temperature Pulse Rate 101 H 100 H 106 H Respiratory Rate Blood Pressure 139/89 O2 Sat by Pulse 96 97 Oximetry O2 Sat by Pulse Oximetry [ Bilateral] 01/05/22 01/05/22 01/05/22 14:23 14:28 14:30 Temperature Pulse Rate 97 H 98 H Respiratory Rate Blood Pressure 142/87 O2 Sat by Pulse 97 96 96 Oximetry O2 Sat by Pulse Oximetry [ Bilateral] 01/05/22 01/05/22 01/05/22 14:33 14:38 14:40 Temperature 98.2 F Pulse Rate 100 H 98 H Respiratory Rate Blood Pressure O2 Sat by Pulse 97 95 Oximetry O2 Sat by Pulse Oximetry [ Bilateral] 01/05/22 01/05/22 01/05/22 14:43 14:44 14:48 Temperature Pulse Rate 98 H 93 H 96 H Respiratory Rate Blood Pressure 138/87 O2 Sat by Pulse 94 97 Oximetry O2 Sat by Pulse Oximetry [ Bilateral] 01/05/22 01/05/22 01/05/22 14:50 14:53 14:58 Temperature Pulse Rate 100 H 96 H 97 H Respiratory Rate Blood Pressure 151/89 O2 Sat by Pulse 94 96 97 Oximetry O2 Sat by Pulse Oximetry [ Bilateral] 01/05/22 01/05/22 01/05/22 15:00 15:03 15:08 Temperature Pulse Rate 96 H 96 H 95 H Respiratory Rate Blood Pressure O2 Sat by Pulse 93 98 97 Oximetry O2 Sat by Pulse Oximetry [ Bilateral] 01/05/22 01/05/22 01/05/22 15:13 15:14 15:15 Temperature Pulse Rate 106 H 98 H 96 H Respiratory Rate Blood Pressure 169/94 O2 Sat by Pulse 97 82 L Oximetry O2 Sat by Pulse Oximetry [ Bilateral] 01/05/22 01/05/22 01/05/22 15:18 15:23 15:28 Temperature Pulse Rate 100 H 39 L 105 H Respiratory Rate Blood Pressure O2 Sat by Pulse 97 94 98 Oximetry O2 Sat by Pulse Oximetry [ Bilateral] 01/05/22 01/05/22 01/05/22 15:29 15:33 15:38 Temperature Pulse Rate 93 H 99 H 92 H Respiratory Rate Blood Pressure 135/81 O2 Sat by Pulse 98 98 Oximetry O2 Sat by Pulse Oximetry [ Bilateral] 01/05/22 01/05/22 01/05/22 15:43 15:44 15:48 Temperature Pulse Rate 113 H 106 H 106 H Respiratory Rate Blood Pressure 174/97 O2 Sat by Pulse 98 87 98 Oximetry O2 Sat by Pulse Oximetry [ Bilateral] 01/05/22 01/05/22 01/05/22 15:50 15:53 15:58 Temperature Pulse Rate 66 103 H 106 H Respiratory Rate Blood Pressure 163/101 O2 Sat by Pulse 92 99 98 Oximetry O2 Sat by Pulse Oximetry [ Bilateral] 01/05/22 01/05/22 01/05/22 16:03 16:08 16:11 Temperature Pulse Rate 103 H 111 H 107 H Respiratory Rate Blood Pressure O2 Sat by Pulse 98 98 93 Oximetry O2 Sat by Pulse Oximetry [ Bilateral] 01/05/22 01/05/22 01/05/22 16:13 16:18 16:23 Temperature Pulse Rate 100 H 95 H 93 H Respiratory Rate Blood Pressure 158/95 O2 Sat by Pulse 97 98 98 Oximetry O2 Sat by Pulse Oximetry [ Bilateral] 01/05/22 01/05/22 01/05/22 16:28 16:33 16:38 Temperature Pulse Rate 91 H 103 H 100 H Respiratory Rate Blood Pressure 146/83 O2 Sat by Pulse 93 99 98 Oximetry O2 Sat by Pulse Oximetry [ Bilateral] 01/05/22 01/05/22 01/05/22 16:43 16:44 16:48 Temperature Pulse Rate 105 H 105 H 102 H Respiratory Rate Blood Pressure 159/119 O2 Sat by Pulse 99 98 Oximetry O2 Sat by Pulse Oximetry [ Bilateral] - Exam Cardiovascular: Regular rate Lungs: Normal air movement Abdomen: Present: normal appearance, soft Vulva: both: normal Uterus: Present: normal, fundal height above umbilicus FHR: auscultation normal, category 1 Uterine Contraction Monitor Mode: External Cervical Dilatation: 1.5 Cervical Effacement Percentage: 50 station: -1 Uterine Contraction Frequency (min): 2-3 Uterine Contraction Duration: 60 Uterine Contraction Pattern: Regular Uterine Tone Measurement Phase: Contraction Uterine Contraction Intensity: Moderate Extremities: normal Deep Tendon Reflex Grade: Normal +2 - Labs Labs: Abnormal Labs 01/04/22 01/04/22 01/04/22 16:12 16:12 19:28 RBC 3.35 L MCHC 35 H Creatinine 0.5 L Magnesium ALT 6 L Lactate Dehydrogenase 295 H Urine WBC (Auto) 7.0 H Urine Creatinine Urine Total Protein 01/04/22 01/05/22 01/05/22 19:28 06:50 12:35 RBC MCHC Creatinine Magnesium 4.50 H 16.70 H ALT Lactate Dehydrogenase Urine WBC (Auto) Urine Creatinine 346.9 H Urine Total Protein 282 H 01/05/22 15:05 RBC MCHC Creatinine Magnesium 4.80 H ALT Lactate Dehydrogenase Urine WBC (Auto) Urine Creatinine Urine Total Protein Laboratory Results - last 24 hr 01/04/22 01/04/22 01/04/22 16:12 16:12 16:12 WBC 10.7 RBC 3.35 L Hgb 10.8 Hct 31.2 MCV 93 MCH 32 MCHC 35 H RDW 14.3 Plt Count 270 Creatinine 0.5 L Estimated GFR > 60 Uric Acid 4.7 Magnesium AST 20 ALT 6 L Lactate Dehydrogenase 295 H Urine Color Urine Turbidity Urine pH Ur Specific [place] Urine Protein Urine Glucose (UA) Urine Ketones Urine Blood Urine Nitrite Urine Bilirubin Urine Urobilinogen Ur Leukocyte Esterase Urine WBC (Auto) Urine RBC (Auto) U Epithel Cells (Auto) Urine Mucus Urine Yeast (Budding) Urine Creatinine Protein/Creatinin Ratio Urine Total Protein Syphilis IgG/IgM Ab Nonreactive SARS-CoV-2 (PCR) Blood Type Antibody Screen 01/04/22 01/04/22 01/04/22 16:12 19:28 19:28 WBC RBC Hgb Hct MCV MCH MCHC RDW Plt Count Creatinine Estimated GFR Uric Acid Magnesium AST ALT Lactate Dehydrogenase Urine Color Nuvia Urine Turbidity Slightly-cloudy Urine pH 5.0 Ur Specific [place] 1.023 Urine Protein >500 Urine Glucose (UA) Neg Urine Ketones Tr Urine Blood Neg Urine Nitrite Neg Urine Bilirubin Neg Urine Urobilinogen < 2.0 Ur Leukocyte Esterase Mod Urine WBC (Auto) 7.0 H Urine RBC (Auto) 2.0 U Epithel Cells (Auto) 6.0 Urine Mucus 3+ Urine Yeast (Budding) Few Urine Creatinine 346.9 H Protein/Creatinin Ratio 0.81 Urine Total Protein 282 H Syphilis IgG/IgM Ab SARS-CoV-2 (PCR) Blood Type B POSITIVE Antibody Screen Negative 01/05/22 01/05/22 01/05/22 06:50 10:42 12:35 WBC RBC Hgb Hct MCV MCH MCHC RDW Plt Count Creatinine Estimated GFR Uric Acid Magnesium 4.50 H 16.70 H AST ALT Lactate Dehydrogenase Urine Color Urine Turbidity Urine pH Ur Specific [place] Urine Protein Urine Glucose (UA) Urine Ketones Urine Blood Urine Nitrite Urine Bilirubin Urine Urobilinogen Ur Leukocyte Esterase Urine WBC (Auto) Urine RBC (Auto) U Epithel Cells (Auto) Urine Mucus Urine Yeast (Budding) Urine Creatinine Protein/Creatinin Ratio Urine Total Protein Syphilis IgG/IgM Ab SARS-CoV-2 (PCR) Negative Blood Type Antibody Screen 01/05/22 15:05 WBC RBC Hgb Hct MCV MCH MCHC RDW Plt Count Creatinine Estimated GFR Uric Acid Magnesium 4.80 H AST ALT Lactate Dehydrogenase Urine Color Urine Turbidity Urine pH Ur Specific [place] Urine Protein Urine Glucose (UA) Urine Ketones Urine Blood Urine Nitrite Urine Bilirubin Urine Urobilinogen Ur Leukocyte Esterase Urine WBC (Auto) Urine RBC (Auto) U Epithel Cells (Auto) Urine Mucus Urine Yeast (Budding) Urine Creatinine Protein/Creatinin Ratio Urine Total Protein Syphilis IgG/IgM Ab SARS-CoV-2 (PCR) Blood Type Antibody Screen
[2022-01-05] MEDS ORDERED: hydrALAZINE 20 MG/1 ML INJ IV PRN (16:59)
[2022-01-05] MEDS ORDERED: DINOPROSTONE 10 MG VAG SUPP VG ONE (19:30)
[2022-01-05] MEDS ORDERED: MAGNESIUM HYDROXIDE (MOM) ORAL LIQD UDC PO ONE (21:38)
[2022-01-06] MEDS: LACTATED RINGERS 1,000 ML IV SCH ×2 (02:41→11:54)
--- NOTE | 2022-01-06 08:47 | Event Note ---
Date: 01/06/22 per RN, pt rested through the night. RN to pull cervidil, allow breakfast and start pitocin 4x4 to a max of 20mU. will reevaluated in a few hours. T reviewed remotely - CAt 1 with occ ctx. b/p's 120's-140's/70-90's. Last mag level 5.8, urine output adequate over night.
[2022-01-06] MEDS ORDERED: OXYTOCIN DRIP 30 UNITS/500 ML BAG IV SCH (09:00)
--- NOTE | 2022-01-06 12:08 | Progress Note ---
Assessment and Plan SVE /-1, midposition and soft. discussed concerns over FHT with late decels, pt consented to AROM w/ IUPC/ISE placement. AROM small amount of clear fluid, internals placed without difficulty. Pt desires epidural placement. RN will call ELEMENTARY SUPERVISOR.. Pitocin titrated for MVUs ~ 200. Dr. Pino updated. - Patient Problems (1) 37 weeks gestation of Current Visit: Yes Status: Acute (2) Pre-eclampsia during in third trimester, antepartum Current Visit: Yes Status: Acute Subjective - Subjective Date of service: 01/06/22 Principal diagnosis: IUP @ 37+5; IOL for pre-e Patient reports: movement normal, contractions, no loss of fluid, no vaginal bleeding Objective - Vital Signs Vital Signs: Vital Signs - 12hr 01/06/22 01/06/22 01/06/22 00:13 00:18 00:23 Temperature Pulse Rate 89 90 89 Blood Pressure O2 Sat by Pulse 100 99 99 Oximetry 01/06/22 01/06/22 01/06/22 00:28 00:31 00:33 Temperature Pulse Rate 90 93 H 89 Blood Pressure 132/76 O2 Sat by Pulse 99 99 Oximetry 01/06/22 01/06/22 01/06/22 00:38 00:43 00:48 Temperature Pulse Rate 90 97 H 97 H Blood Pressure O2 Sat by Pulse 98 98 99 Oximetry 01/06/22 01/06/22 01/06/22 00:53 00:58 01:03 Temperature Pulse Rate 96 H 88 91 H Blood Pressure 132/86 O2 Sat by Pulse 97 98 99 Oximetry 01/06/22 01/06/22 01/06/22 01:08 01:12 01:13 Temperature 98.6 F Pulse Rate 93 H 95 H Blood Pressure O2 Sat by Pulse 98 97 Oximetry 01/06/22 01/06/22 01/06/22 01:18 01:23 01:28 Temperature Pulse Rate 93 H 93 H 93 H Blood Pressure 139/84 O2 Sat by Pulse 98 97 96 Oximetry 01/06/22 01/06/22 01/06/22 01:33 01:38 01:43 Temperature Pulse Rate 94 H 94 H 93 H Blood Pressure O2 Sat by Pulse 95 95 95 Oximetry 05/25/22 05/25/22 05/25/22 01:48 01:53 01:58 Temperature Pulse Rate 93 H 96 H 96 H Blood Pressure 137/75 O2 Sat by Pulse 95 96 96 Oximetry 01/06/22 01/06/22 01/06/22 01:59 02:03 02:08 Temperature Pulse Rate 99 H 95 H 98 H Blood Pressure O2 Sat by Pulse 86 96 96 Oximetry 01/06/22 01/06/22 01/06/22 02:13 02:18 02:23 Temperature Pulse Rate 95 H 95 H 100 H Blood Pressure O2 Sat by Pulse 97 96 97 Oximetry 01/06/22 01/06/22 01/06/22 02:28 02:31 02:33 Temperature Pulse Rate 93 H 95 H 99 H Blood Pressure 117/71 O2 Sat by Pulse 96 97 Oximetry 01/06/22 01/06/22 01/06/22 02:38 02:43 02:48 Temperature Pulse Rate 100 H 98 H 94 H Blood Pressure O2 Sat by Pulse 97 97 97 Oximetry 01/06/22 01/06/22 01/06/22 02:53 02:58 02:59 Temperature Pulse Rate 95 H 95 H 95 H Blood Pressure 128/72 O2 Sat by Pulse 96 97 93 Oximetry 01/06/22 01/06/22 01/06/22 03:03 03:08 03:13 Temperature Pulse Rate 96 H 95 H 100 H Blood Pressure O2 Sat by Pulse 96 96 97 Oximetry 01/06/22 01/06/22 01/06/22 03:17 03:18 03:23 Temperature Pulse Rate 101 H 95 H 96 H Blood Pressure O2 Sat by Pulse 94 96 95 Oximetry 01/06/22 01/06/22 01/06/22 03:28 03:29 03:33 Temperature Pulse Rate 94 H 93 H 95 H Blood Pressure 130/64 O2 Sat by Pulse 95 94 95 Oximetry 01/06/22 01/06/22 01/06/22 03:38 03:43 03:48 Temperature Pulse Rate 95 H 93 H 94 H Blood Pressure O2 Sat by Pulse 95 94 93 Oximetry 01/06/22 01/06/22 01/06/22 03:53 03:58 04:00 Temperature Pulse Rate 92 H 94 H 97 H Blood Pressure 161/87 O2 Sat by Pulse 92 98 94 Oximetry 01/06/22 01/06/22 01/06/22 04:03 04:08 04:13 Temperature Pulse Rate 109 H 94 H 94 H Blood Pressure O2 Sat by Pulse 96 97 96 Oximetry 01/06/22 01/06/22 01/06/22 04:18 04:23 04:28 Temperature Pulse Rate 95 H 95 H 98 H Blood Pressure O2 Sat by Pulse 96 96 97 Oximetry 01/06/22 01/06/22 01/06/22 04:29 04:33 04:38 Temperature Pulse Rate 95 H 94 H 96 H Blood Pressure 123/69 O2 Sat by Pulse 94 96 95 Oximetry 01/06/22 01/06/22 01/06/22 04:43 04:48 04:53 Temperature Pulse Rate 97 H 100 H 99 H Blood Pressure O2 Sat by Pulse 95 95 96 Oximetry 01/06/22 01/06/22 01/06/22 04:58 05:03 05:08 Temperature Pulse Rate 96 H 103 H 100 H Blood Pressure 126/72 O2 Sat by Pulse 89 94 95 Oximetry 01/06/22 01/06/22 01/06/22 05:10 05:13 05:15 Temperature Pulse Rate 98 H 98 H 101 H Blood Pressure O2 Sat by Pulse 94 96 94 Oximetry 01/06/22 01/06/22 01/06/22 05:18 05:21 05:23 Temperature 98.4 F Pulse Rate 107 H 102 H Blood Pressure O2 Sat by Pulse 95 98 Oximetry 01/06/22 01/06/22 01/06/22 05:28 05:30 05:33 Temperature Pulse Rate 103 H 96 H 91 H Blood Pressure 144/93 O2 Sat by Pulse 98 93 97 Oximetry 01/06/22 01/06/22 01/06/22 05:38 05:43 05:48 Temperature Pulse Rate 94 H 93 H 95 H Blood Pressure O2 Sat by Pulse 96 96 97 Oximetry 01/06/22 01/06/22 01/06/22 05:53 05:58 06:03 Temperature Pulse Rate 95 H 92 H 95 H Blood Pressure 133/77 O2 Sat by Pulse 95 92 95 Oximetry 01/06/22 01/06/22 01/06/22 06:04 06:08 06:13 Temperature Pulse Rate 91 H 91 H 90 Blood Pressure O2 Sat by Pulse 94 95 94 Oximetry 01/06/22 01/06/22 01/06/22 06:18 06:21 06:23 Temperature Pulse Rate 94 H 94 H 96 H Blood Pressure O2 Sat by Pulse 95 94 94 Oximetry 01/06/22 01/06/22 01/06/22 06:27 06:28 06:30 Temperature Pulse Rate 96 H 98 H 98 H Blood Pressure 129/77 O2 Sat by Pulse 94 94 Oximetry 01/06/22 01/06/22 01/06/22 06:33 06:38 06:43 Temperature Pulse Rate 96 H 95 H 101 H Blood Pressure O2 Sat by Pulse 95 94 97 Oximetry 01/06/22 01/06/22 01/06/22 06:48 06:53 06:58 Temperature Pulse Rate 96 H 102 H 94 H Blood Pressure O2 Sat by Pulse 97 98 96 Oximetry 01/06/22 01/06/22 01/06/22 06:59 07:03 07:08 Temperature Pulse Rate 92 H 95 H 95 H Blood Pressure 126/72 O2 Sat by Pulse 92 96 97 Oximetry 01/06/22 01/06/22 01/06/22 07:13 07:18 07:23 Temperature Pulse Rate 97 H 92 H 98 H Blood Pressure O2 Sat by Pulse 97 98 97 Oximetry 01/06/22 01/06/22 01/06/22 07:26 07:28 07:29 Temperature Pulse Rate 105 H 96 H 100 H Blood Pressure 137/93 O2 Sat by Pulse 89 99 Oximetry 01/06/22 01/06/22 01/06/22 07:30 07:33 07:38 Temperature Pulse Rate 93 H 92 H 93 H Blood Pressure 138/73 O2 Sat by Pulse 96 95 Oximetry 01/06/22 01/06/22 01/06/22 07:43 07:48 07:53 Temperature Pulse Rate 93 H 98 H 96 H Blood Pressure O2 Sat by Pulse 96 95 96 Oximetry 01/06/22 01/06/22 01/06/22 07:58 07:59 08:03 Temperature Pulse Rate 94 H 98 H 96 H Blood Pressure 133/96 O2 Sat by Pulse 95 96 Oximetry 01/06/22 01/06/22 01/06/22 08:08 08:13 08:18 Temperature Pulse Rate 97 H 106 H 95 H Blood Pressure O2 Sat by Pulse 95 96 95 Oximetry 01/06/22 01/06/22 01/06/22 08:23 08:26 08:28 Temperature Pulse Rate 92 H 97 H 95 H Blood Pressure O2 Sat by Pulse 96 94 95 Oximetry 01/06/22 01/06/22 01/06/22 08:30 08:33 08:38 Temperature Pulse Rate 103 H 98 H 105 H Blood Pressure 141/85 O2 Sat by Pulse 94 97 Oximetry 01/06/22 01/06/22 01/06/22 08:43 08:48 08:53 Temperature Pulse Rate 111 H 105 H 103 H Blood Pressure O2 Sat by Pulse 96 91 98 Oximetry 01/06/22 01/06/22 01/06/22 08:55 08:58 09:00 Temperature Pulse Rate 98 H 102 H 98 H Blood Pressure 158/94 O2 Sat by Pulse 94 97 Oximetry 01/06/22 01/06/22 01/06/22 09:03 09:08 09:13 Temperature Pulse Rate 103 H 102 H 100 H Blood Pressure O2 Sat by Pulse 98 99 96 Oximetry 01/06/22 01/06/22 01/06/22 09:18 09:23 09:28 Temperature Pulse Rate 108 H 99 H 98 H Blood Pressure O2 Sat by Pulse 97 99 97 Oximetry 01/06/22 01/06/22 01/06/22 09:31 09:33 09:38 Temperature Pulse Rate 103 H 100 H 99 H Blood Pressure 140/87 O2 Sat by Pulse 100 99 Oximetry 01/06/22 01/06/22 01/06/22 09:43 09:48 09:53 Temperature Pulse Rate 103 H 96 H 98 H Blood Pressure O2 Sat by Pulse 98 99 97 Oximetry 01/06/22 01/06/22 01/06/22 09:58 09:59 10:03 Temperature Pulse Rate 98 H 95 H 96 H Blood Pressure 123/61 O2 Sat by Pulse 98 99 Oximetry 01/06/22 01/06/22 01/06/22 10:08 10:13 10:18 Temperature Pulse Rate 101 H 95 H 102 H Blood Pressure O2 Sat by Pulse 98 97 96 Oximetry 01/06/22 01/06/22 01/06/22 10:23 10:28 10:29 Temperature Pulse Rate 102 H 103 H 101 H Blood Pressure 134/78 O2 Sat by Pulse 96 97 Oximetry 01/06/22 01/06/22 01/06/22 10:32 10:33 10:38 Temperature Pulse Rate 104 H 105 H 110 H Blood Pressure O2 Sat by Pulse 94 95 97 Oximetry 01/06/22 01/06/22 01/06/22 10:43 10:48 10:53 Temperature Pulse Rate 104 H 108 H 100 H Blood Pressure O2 Sat by Pulse 98 97 96 Oximetry 01/06/22 01/06/22 01/06/22 10:58 10:59 11:03 Temperature Pulse Rate 102 H 99 H 100 H Blood Pressure 116/57 O2 Sat by Pulse 96 96 Oximetry 01/06/22 01/06/22 01/06/22 11:08 11:12 11:13 Temperature Pulse Rate 98 H 97 H 106 H Blood Pressure 110/57 O2 Sat by Pulse 95 97 Oximetry 01/06/22 01/06/22 01/06/22 11:17 11:18 11:23 Temperature Pulse Rate 97 H 98 H 98 H Blood Pressure O2 Sat by Pulse 94 94 95 Oximetry 01/06/22 01/06/22 01/06/22 11:24 11:28 11:33 Temperature Pulse Rate 98 H 99 H 90 Blood Pressure O2 Sat by Pulse 94 95 95 Oximetry 01/06/22 01/06/22 01/06/22 11:35 11:38 11:42 Temperature Pulse Rate 89 93 H 88 Blood Pressure 112/61 O2 Sat by Pulse 94 95 Oximetry 01/06/22 01/06/22 01/06/22 11:43 11:48 11:53 Temperature Pulse Rate 99 H 104 H 100 H Blood Pressure O2 Sat by Pulse 95 97 100 Oximetry 01/06/22 01/06/22 11:58 12:03 Temperature Pulse Rate 104 H 100 H Blood Pressure O2 Sat by Pulse 100 100 Oximetry - Exam Breasts: normal Cardiovascular: Regular rate Lungs: Normal air movement Abdomen: Present: normal appearance, soft Vulva: both: normal Uterus: Present: normal, fundal height above umbilicus FHR: category 2 Uterine Contraction Monitor Mode: Internal Cervical Dilatation: 2 (AROM - clear) Cervical Effacement Percentage: 60 station: -1 Uterine Contraction Frequency (min): 2-3 Uterine Contraction Duration: 60 Uterine Contraction Pattern: Regular Uterine Tone Measurement Phase: Contraction Uterine Contraction Intensity: Moderate Extremities: edema (2+ pitting BLE) Deep Tendon Reflex Grade: Normal +2 - Labs Labs: Abnormal Labs 01/04/22 01/04/22 01/04/22 16:12 16:12 19:28 RBC 3.35 L MCHC 35 H Creatinine 0.5 L Magnesium ALT 6 L Lactate Dehydrogenase 295 H Urine WBC (Auto) 7.0 H Urine Creatinine Urine Total Protein 01/04/22 01/05/22 01/05/22 19:28 06:50 12:35 RBC MCHC Creatinine Magnesium 4.50 H 16.70 H ALT Lactate Dehydrogenase Urine WBC (Auto) Urine Creatinine 346.9 H Urine Total Protein 282 H 01/05/22 01/05/22 01/06/22 15:05 21:16 02:41 RBC MCHC Creatinine Magnesium 4.80 H 4.80 H 5.40 H ALT Lactate Dehydrogenase Urine WBC (Auto) Urine Creatinine Urine Total Protein 01/06/22 07:55 RBC MCHC Creatinine Magnesium 5.80 H ALT Lactate Dehydrogenase Urine WBC (Auto) Urine Creatinine Urine Total Protein Laboratory Results - last 24 hr 01/05/22 01/05/22 01/05/22 12:35 15:05 21:16 Magnesium 16.70 H 4.80 H 4.80 H 01/06/22 01/06/22 02:41 07:55 Magnesium 5.40 H 5.80 H
[2022-01-06] MEDS: fentaNYL 100 MCG/2 ML INJ IV PRN (13:15)
--- NOTE | 2022-01-06 14:59 | Anesthesia Consultation ---
Anesthesia Consult and Med Hx Date of service: 01/06/22 - Airway Anesthetic Teeth Evaluation: Poor ROM Head & Neck: Adequate Mental/Hyoid Distance: Adequate Mallampati Class: Class II Intubation Access Assessment: Probably Good - Pulmonary Exam CTA: Yes - Cardiac Exam Cardiac Exam: RRR - Pre-Operative Health Status ASA Pre-Surgery Classification: ASA3 Proposed Anesthetic Plan: Epidural - Pulmonary Hx Smoking: No Hx Asthma: No COPD: No Hx Pneumonia: No - Cardiovascular System Hx Hypertension: Yes (preeclampsia) - Central Nervous System Hx Seizures: No Hx Psychiatric Problems: No - Endocrine Hx Renal Disease: No Hx End Stage Renal Disease: No Hx Hypothyroidism: No Hx Hyperthyroidism: No - Hematic Hx Anemia: No Hx Sickle Cell Disease: No - Other Systems Hx Alcohol Use: No Hx Substance Use: No Hx Obesity: Yes
--- NOTE | 2022-01-06 15:02 | Progress Note ---
Labor Epidural - Labor Epidural Start Time: 14:34 Stop Time: 14:52 Performed by:: DO MEJIA Procedure: Patient is requesting epidural for labor pain. H&P and labs reviewed. Procedure explained, questions answered, consent obtained. Patient placed in sitting position with monitors applied. Timeout performed immediately before start of procedure. Prep/drape in usual sterile fashion. Skin localized 3 mL 1% lidocaine at L[3]-L[4] interspace. 17-gauge Touhy epidural needle advanced to VICTOR M with saline at [8] cm. No blood/CSF noted via epidural needle. Epidural catheter advanced to [12] cm. Negative aspiration for blood and CSF via catheter, negative response to test dose 5 ml 1.5% lidocaine w/ Epi. Sterile dressing applied followed by tape reinforcement. Patient tolerated procedure well. No immediate complications noted. Pain Score 10/10 after procedure 0/10.
[2022-01-06] MEDS ORDERED: fentaNYL-BUPIV 2 MCG/ML-0.125% 200 MCG/100 ML BAG EPIDURAL SCH (16:30)
[2022-01-06] MEDS ORDERED: fentaNYL-BUPIV 2 MCG/ML-0.125% 200 MCG/100 ML BAG EPIDURAL ONE (16:40)
--- NOTE | 2022-01-06 16:40 | Progress Note ---
Assessment and Plan Pt c/o pain in ler lower abd and back with ctx, epidural pump not started at this time. RN to start pump and call NEEDLE LOOM OPERATOR HELPER for redose. MVUs are not adequate - ~100-120. RN to continue titration to MVU~200. After patient is comfortable, she needs to be repositioned from right tilt utilizing peanut ball. - Patient Problems (1) 37 weeks gestation of Current Visit: Yes Status: Acute (2) Pre-eclampsia during in third trimester, antepartum Current Visit: Yes Status: Acute Subjective - Subjective Date of service: 01/06/22 Principal diagnosis: IUP @ 37+5; IOL for pre-e Patient reports: movement normal, no loss of fluid, no vaginal bleeding Objective - Vital Signs Vital Signs: Vital Signs - 12hr 01/06/22 01/06/22 01/06/22 04:38 04:43 04:48 Temperature Pulse Rate 96 H 97 H 100 H Blood Pressure O2 Sat by Pulse 95 95 95 Oximetry 01/06/22 01/06/22 01/06/22 04:53 04:58 05:03 Temperature Pulse Rate 99 H 96 H 103 H Blood Pressure 126/72 O2 Sat by Pulse 96 89 94 Oximetry 01/06/22 01/06/22 01/06/22 05:08 05:10 05:13 Temperature Pulse Rate 100 H 98 H 98 H Blood Pressure O2 Sat by Pulse 95 94 96 Oximetry 01/06/22 01/06/22 01/06/22 05:15 05:18 05:21 Temperature 98.4 F Pulse Rate 101 H 107 H Blood Pressure O2 Sat by Pulse 94 95 Oximetry 01/06/22 01/06/22 01/06/22 05:23 05:28 05:30 Temperature Pulse Rate 102 H 103 H 96 H Blood Pressure 144/93 O2 Sat by Pulse 98 98 93 Oximetry 01/06/22 01/06/22 01/06/22 05:33 05:38 05:43 Temperature Pulse Rate 91 H 94 H 93 H Blood Pressure O2 Sat by Pulse 97 96 96 Oximetry 01/06/22 01/06/22 01/06/22 05:48 05:53 05:58 Temperature Pulse Rate 95 H 95 H 92 H Blood Pressure 133/77 O2 Sat by Pulse 97 95 92 Oximetry 01/06/22 01/06/22 01/06/22 06:03 06:04 06:08 Temperature Pulse Rate 95 H 91 H 91 H Blood Pressure O2 Sat by Pulse 95 94 95 Oximetry 01/06/22 01/06/22 01/06/22 06:13 06:18 06:21 Temperature Pulse Rate 90 94 H 94 H Blood Pressure O2 Sat by Pulse 94 95 94 Oximetry 01/06/22 01/06/22 01/06/22 06:23 06:27 06:28 Temperature Pulse Rate 96 H 96 H 98 H Blood Pressure O2 Sat by Pulse 94 94 94 Oximetry 01/06/22 01/06/22 01/06/22 06:30 06:33 06:38 Temperature Pulse Rate 98 H 96 H 95 H Blood Pressure 129/77 O2 Sat by Pulse 95 94 Oximetry 01/06/22 01/06/22 01/06/22 06:43 06:48 06:53 Temperature Pulse Rate 101 H 96 H 102 H Blood Pressure O2 Sat by Pulse 97 97 98 Oximetry 01/06/22 01/06/22 01/06/22 06:58 06:59 07:03 Temperature Pulse Rate 94 H 92 H 95 H Blood Pressure 126/72 O2 Sat by Pulse 96 92 96 Oximetry 01/06/22 01/06/22 01/06/22 07:08 07:13 07:18 Temperature Pulse Rate 95 H 97 H 92 H Blood Pressure O2 Sat by Pulse 97 97 98 Oximetry 01/06/22 01/06/22 01/06/22 07:23 07:26 07:28 Temperature Pulse Rate 98 H 105 H 96 H Blood Pressure O2 Sat by Pulse 97 89 99 Oximetry 01/06/22 01/06/22 01/06/22 07:29 07:30 07:33 Temperature Pulse Rate 100 H 93 H 92 H Blood Pressure 137/93 138/73 O2 Sat by Pulse 96 Oximetry 01/06/22 01/06/22 01/06/22 07:38 07:43 07:48 Temperature Pulse Rate 93 H 93 H 98 H Blood Pressure O2 Sat by Pulse 95 96 95 Oximetry 01/06/22 01/06/22 01/06/22 07:53 07:58 07:59 Temperature Pulse Rate 96 H 94 H 98 H Blood Pressure 133/96 O2 Sat by Pulse 96 95 Oximetry 01/06/22 01/06/22 01/06/22 08:03 08:08 08:13 Temperature Pulse Rate 96 H 97 H 106 H Blood Pressure O2 Sat by Pulse 96 95 96 Oximetry 01/06/22 01/06/22 01/06/22 08:18 08:23 08:26 Temperature Pulse Rate 95 H 92 H 97 H Blood Pressure O2 Sat by Pulse 95 96 94 Oximetry 01/06/22 01/06/22 01/06/22 08:28 08:30 08:33 Temperature Pulse Rate 95 H 103 H 98 H Blood Pressure 141/85 O2 Sat by Pulse 95 94 Oximetry 01/06/22 01/06/22 01/06/22 08:38 08:43 08:48 Temperature Pulse Rate 105 H 111 H 105 H Blood Pressure O2 Sat by Pulse 97 96 91 Oximetry 01/06/22 01/06/22 01/06/22 08:53 08:55 08:58 Temperature Pulse Rate 103 H 98 H 102 H Blood Pressure O2 Sat by Pulse 98 94 97 Oximetry 01/06/22 01/06/22 01/06/22 09:00 09:03 09:08 Temperature Pulse Rate 98 H 103 H 102 H Blood Pressure 158/94 O2 Sat by Pulse 98 99 Oximetry 01/06/22 01/06/22 01/06/22 09:13 09:18 09:23 Temperature Pulse Rate 100 H 108 H 99 H Blood Pressure O2 Sat by Pulse 96 97 99 Oximetry 01/06/22 01/06/22 01/06/22 09:28 09:31 09:33 Temperature Pulse Rate 98 H 103 H 100 H Blood Pressure 140/87 O2 Sat by Pulse 97 100 Oximetry 01/06/22 01/06/22 01/06/22 09:38 09:43 09:48 Temperature Pulse Rate 99 H 103 H 96 H Blood Pressure O2 Sat by Pulse 99 98 99 Oximetry 01/06/22 01/06/22 01/06/22 09:53 09:58 09:59 Temperature Pulse Rate 98 H 98 H 95 H Blood Pressure 123/61 O2 Sat by Pulse 97 98 Oximetry 01/06/22 0501/06/22 10:03 10:08 10:13 Temperature Pulse Rate 96 H 101 H 95 H Blood Pressure O2 Sat by Pulse 99 98 97 Oximetry 01/06/22 05 05 10:18 10:23 10:28 Temperature Pulse Rate 102 H 102 H 103 H Blood Pressure O2 Sat by Pulse 96 96 97 Oximetry 01/06/22 01/06/22 01/06/22 10:29 10:32 10:33 Temperature Pulse Rate 101 H 104 H 105 H Blood Pressure 134/78 O2 Sat by Pulse 94 95 Oximetry 01/06/22 01/06/22 01/06/22 10:38 10:43 10:48 Temperature Pulse Rate 110 H 104 H 108 H Blood Pressure O2 Sat by Pulse 97 98 97 Oximetry 01/06/22 01/06/22 01/06/22 10:53 10:58 10:59 Temperature Pulse Rate 100 H 102 H 99 H Blood Pressure 116/57 O2 Sat by Pulse 96 96 Oximetry 01/06/22 01/06/22 01/06/22 11:03 11:08 11:12 Temperature Pulse Rate 100 H 98 H 97 H Blood Pressure 110/57 O2 Sat by Pulse 96 95 Oximetry 01/06/22 01/06/22 01/06/22 11:13 11:17 11:18 Temperature Pulse Rate 106 H 97 H 98 H Blood Pressure O2 Sat by Pulse 97 94 94 Oximetry 01/06/22 01/06/22 01/06/22 11:23 11:24 11:28 Temperature Pulse Rate 98 H 98 H 99 H Blood Pressure O2 Sat by Pulse 95 94 95 Oximetry 01/06/22 01/06/22 01/06/22 11:33 11:35 11:38 Temperature Pulse Rate 90 89 93 H Blood Pressure O2 Sat by Pulse 95 94 95 Oximetry 01/06/22 01/06/22 01/06/22 11:42 11:43 11:48 Temperature Pulse Rate 88 99 H 104 H Blood Pressure 112/61 O2 Sat by Pulse 95 97 Oximetry 01/06/22 01/06/22 01/06/22 11:53 11:58 12:03 Temperature Pulse Rate 100 H 104 H 100 H Blood Pressure O2 Sat by Pulse 100 100 100 Oximetry 01/06/22 01/06/22 01/06/22 12:08 12:12 12:13 Temperature Pulse Rate 104 H 102 H 100 H Blood Pressure 119/69 O2 Sat by Pulse 100 100 Oximetry 01/06/22 01/06/22 01/06/22 12:18 12:23 12:28 Temperature Pulse Rate 99 H 101 H 100 H Blood Pressure O2 Sat by Pulse 100 100 100 Oximetry 01/06/22 01/06/22 01/06/22 12:33 12:38 12:43 Temperature Pulse Rate 100 H 101 H 96 H Blood Pressure 161/96 O2 Sat by Pulse 100 100 100 Oximetry 01/06/22 01/06/22 01/06/22 12:48 12:53 12:58 Temperature Pulse Rate 98 H 99 H 95 H Blood Pressure O2 Sat by Pulse 100 100 99 Oximetry 01/06/22 01/06/22 01/06/22 13:03 13:08 13:11 Temperature Pulse Rate 99 H 98 H 88 Blood Pressure 136/88 O2 Sat by Pulse 100 100 Oximetry 01/06/22 01/06/22 01/06/22 13:13 13:18 13:23 Temperature Pulse Rate 88 91 H 98 H Blood Pressure 142/91 O2 Sat by Pulse 100 97 97 Oximetry 01/06/22 01/06/22 01/06/22 13:28 13:33 13:38 Temperature Pulse Rate 104 H 87 104 H Blood Pressure O2 Sat by Pulse 96 97 98 Oximetry 01/06/22 01/06/22 01/06/22 13:43 13:44 13:48 Temperature Pulse Rate 91 H 93 H 94 H Blood Pressure 137/101 O2 Sat by Pulse 96 94 98 Oximetry 01/06/22 01/06/22 01/06/22 13:49 13:53 13:58 Temperature Pulse Rate 93 H 92 H 93 H Blood Pressure 144/92 O2 Sat by Pulse 96 96 Oximetry 01/06/22 01/06/22 01/06/22 14:03 14:08 14:13 Temperature Pulse Rate 86 89 100 H Blood Pressure 161/100 O2 Sat by Pulse 97 96 96 Oximetry 01/06/22 01/06/22 01/06/22 14:18 14:23 14:25 Temperature Pulse Rate 89 93 H 99 H Blood Pressure O2 Sat by Pulse 95 97 94 Oximetry 01/06/22 01/06/22 01/06/22 14:28 14:33 14:38 Temperature Pulse Rate 103 H 92 H 93 H Blood Pressure O2 Sat by Pulse 95 93 99 Oximetry 01/06/22 01/06/22 01/06/22 14:43 14:44 14:45 Temperature Pulse Rate 92 H 90 88 Blood Pressure 140/84 145/86 141/88 O2 Sat by Pulse 93 Oximetry 01/06/22 01/06/22 01/06/22 14:48 14:51 14:53 Temperature Pulse Rate 93 H 90 90 Blood Pressure 138/84 120/67 O2 Sat by Pulse 98 98 Oximetry 01/06/22 01/06/22 01/06/22 14:54 14:55 14:58 Temperature Pulse Rate 90 92 H 93 H Blood Pressure 122/76 122/76 129/86 O2 Sat by Pulse 98 Oximetry 01/06/22 01/06/22 01/06/22 15:01 15:03 15:08 Temperature Pulse Rate 97 H 89 91 H Blood Pressure 125/77 O2 Sat by Pulse 93 97 97 Oximetry 01/06/22 01/06/22 01/06/22 15:13 15:16 15:18 Temperature Pulse Rate 95 H 90 86 Blood Pressure 127/78 O2 Sat by Pulse 97 97 Oximetry 01/06/22 01/06/22 01/06/22 15:19 15:23 15:28 Temperature Pulse Rate 90 91 H 92 H Blood Pressure O2 Sat by Pulse 94 95 96 Oximetry 01/06/22 01/06/22 01/06/22 15:31 15:33 15:38 Temperature Pulse Rate 86 82 96 H Blood Pressure 130/78 O2 Sat by Pulse 85 95 98 Oximetry 01/06/22 01/06/22 01/06/22 15:43 15:48 15:53 Temperature Pulse Rate 96 H 85 89 Blood Pressure O2 Sat by Pulse 97 96 96 Oximetry 01/06/22 01/06/22 01/06/22 15:58 16:01 16:03 Temperature Pulse Rate 88 87 91 H Blood Pressure O2 Sat by Pulse 96 91 95 Oximetry 01/06/22 01/06/22 01/06/22 16:08 16:13 16:14 Temperature Pulse Rate 89 91 H 90 Blood Pressure O2 Sat by Pulse 95 95 92 Oximetry 01/06/22 01/06/22 01/06/22 16:18 16:20 16:23 Temperature Pulse Rate 89 91 H 93 H Blood Pressure O2 Sat by Pulse 95 94 97 Oximetry 01/06/22 01/06/22 01/06/22 16:27 16:28 16:32 Temperature Pulse Rate 91 H 97 H 100 H Blood Pressure 123/88 134/84 O2 Sat by Pulse 89 96 Oximetry 01/06/22 16:33 Temperature Pulse Rate 99 H Blood Pressure O2 Sat by Pulse 97 Oximetry - Exam Cardiovascular: Regular rate Lungs: Normal air movement Abdomen: Present: normal appearance, soft Vulva: both: normal Uterus: Present: fundal height above umbilicus FHR: category 1, category 2 Uterine Contraction Monitor Mode: Internal Cervical Dilatation: 3.5 Cervical Effacement Percentage: 60 station: -1 Uterine Contraction Frequency (min): 2-4 Uterine Contraction Duration: 60 Uterine Contraction Pattern: Regular Uterine Tone Measurement Phase: Contraction Uterine Contraction Intensity: Moderate Extremities: edema - Labs Labs: Abnormal Labs 01/04/22 01/04/22 01/04/22 16:12 16:12 19:28 RBC 3.35 L MCHC 35 H Creatinine 0.5 L Magnesium ALT 6 L Lactate Dehydrogenase 295 H Urine WBC (Auto) 7.0 H Urine Creatinine Urine Total Protein 01/04/22 01/05/22 01/05/22 19:28 06:50 12:35 RBC MCHC Creatinine Magnesium 4.50 H 16.70 H ALT Lactate Dehydrogenase Urine WBC (Auto) Urine Creatinine 346.9 H Urine Total Protein 282 H 01/05/22 01/05/22 01/06/22 15:05 21:16 02:41 RBC MCHC Creatinine Magnesium 4.80 H 4.80 H 5.40 H ALT Lactate Dehydrogenase Urine WBC (Auto) Urine Creatinine Urine Total Protein 01/06/22 07:55 RBC MCHC Creatinine Magnesium 5.80 H ALT Lactate Dehydrogenase Urine WBC (Auto) Urine Creatinine Urine Total Protein Laboratory Results - last 24 hr 01/05/22 01/06/22 01/06/22 21:16 02:41 07:55 Magnesium 4.80 H 5.40 H 5.80 H
[2022-01-06] MEDS ORDERED: NALOXONE 0.4 MG/1 ML INJ IV PRN (17:00)
[2022-01-06] MEDS ORDERED: ePHEDrine SULFATE 50 MG/1 ML INJ IV PRN (17:00)
[2022-01-06] MEDS: MAGNESIUM SULFATE 40GM/1000ML 40 GM/1,000 ML BAG IV SCH (17:45)
--- NOTE | 2022-01-06 20:18 | Progress Note ---
Assessment and Plan patient c/o pain on left side and feeling rectal pressure intermittently. SVE 5.5/80/0, rn to help turn patient q30 minutes. Anticipate - Patient Problems (1) 37 weeks gestation of Current Visit: Yes Status: Acute (2) Pre-eclampsia during in third trimester, antepartum Current Visit: Yes Status: Acute Subjective - Subjective Date of service: 01/06/22 Principal diagnosis: IUP @ 37+5; IOL for pre-e Patient reports: other (rectal pressure, back pain, lower abd pain), no loss of fluid, no vaginal bleeding Objective - Vital Signs Vital Signs: Vital Signs - 12hr 01/06/22 01/06/22 01/06/22 08:13 08:18 08:23 Temperature Pulse Rate 106 H 95 H 92 H Respiratory Rate Blood Pressure O2 Sat by Pulse 96 95 96 Oximetry O2 Sat by Pulse Oximetry [ Bilateral] 01/06/22 01/06/22 01/06/22 08:26 08:28 08:30 Temperature Pulse Rate 97 H 95 H 103 H Respiratory Rate Blood Pressure 141/85 O2 Sat by Pulse 94 95 Oximetry O2 Sat by Pulse 100 Oximetry [ Bilateral] 01/06/22 01/06/22 01/06/22 08:33 08:38 08:43 Temperature Pulse Rate 98 H 105 H 111 H Respiratory Rate Blood Pressure O2 Sat by Pulse 94 97 96 Oximetry O2 Sat by Pulse Oximetry [ Bilateral] 01/06/22 01/06/22 01/06/22 08:48 08:53 08:55 Temperature Pulse Rate 105 H 103 H 98 H Respiratory Rate Blood Pressure O2 Sat by Pulse 91 98 94 Oximetry O2 Sat by Pulse Oximetry [ Bilateral] 01/06/22 01/06/22 01/06/22 08:58 09:00 09:03 Temperature Pulse Rate 102 H 98 H 103 H Respiratory Rate Blood Pressure 158/94 O2 Sat by Pulse 97 98 Oximetry O2 Sat by Pulse Oximetry [ Bilateral] 01/06/22 01/06/22 01/06/22 09:08 09:13 09:18 Temperature Pulse Rate 102 H 100 H 108 H Respiratory Rate Blood Pressure O2 Sat by Pulse 99 96 97 Oximetry O2 Sat by Pulse Oximetry [ Bilateral] 01/06/22 01/06/22 01/06/22 09:23 09:28 09:31 Temperature Pulse Rate 99 H 98 H 103 H Respiratory Rate Blood Pressure 140/87 O2 Sat by Pulse 99 97 Oximetry O2 Sat by Pulse Oximetry [ Bilateral] 01/06/22 01/06/22 01/06/22 09:33 09:38 09:43 Temperature Pulse Rate 100 H 99 H 103 H Respiratory Rate Blood Pressure O2 Sat by Pulse 100 99 98 Oximetry O2 Sat by Pulse Oximetry [ Bilateral] 01/06/22 01/06/22 01/06/22 09:48 09:53 09:58 Temperature Pulse Rate 96 H 98 H 98 H Respiratory Rate Blood Pressure O2 Sat by Pulse 99 97 98 Oximetry O2 Sat by Pulse Oximetry [ Bilateral] 01/06/22 01/06/22 01/06/22 09:59 10:03 10:08 Temperature Pulse Rate 95 H 96 H 101 H Respiratory Rate Blood Pressure 123/61 O2 Sat by Pulse 99 98 Oximetry O2 Sat by Pulse Oximetry [ Bilateral] 01/06/22 01/06/22 01/06/22 10:13 10:18 10:23 Temperature Pulse Rate 95 H 102 H 102 H Respiratory Rate Blood Pressure O2 Sat by Pulse 97 96 96 Oximetry O2 Sat by Pulse Oximetry [ Bilateral] 01/06/22 01/06/22 01/06/22 10:28 10:29 10:32 Temperature Pulse Rate 103 H 101 H 104 H Respiratory Rate Blood Pressure 134/78 O2 Sat by Pulse 97 94 Oximetry O2 Sat by Pulse Oximetry [ Bilateral] 01/06/22 01/06/22 01/06/22 10:33 10:38 10:43 Temperature Pulse Rate 105 H 110 H 104 H Respiratory Rate Blood Pressure O2 Sat by Pulse 95 97 98 Oximetry O2 Sat by Pulse Oximetry [ Bilateral] 01/06/22 01/06/22 01/06/22 10:48 10:53 10:58 Temperature Pulse Rate 108 H 100 H 102 H Respiratory Rate Blood Pressure O2 Sat by Pulse 97 96 96 Oximetry O2 Sat by Pulse Oximetry [ Bilateral] 01/06/22 01/06/22 01/06/22 10:59 11:03 11:08 Temperature Pulse Rate 99 H 100 H 98 H Respiratory Rate Blood Pressure 116/57 O2 Sat by Pulse 96 95 Oximetry O2 Sat by Pulse Oximetry [ Bilateral] 01/06/22 01/06/22 01/06/22 11:12 11:13 11:17 Temperature Pulse Rate 97 H 106 H 97 H Respiratory Rate Blood Pressure 110/57 O2 Sat by Pulse 97 94 Oximetry O2 Sat by Pulse Oximetry [ Bilateral] 01/06/22 01/06/22 01/06/22 11:18 11:23 11:24 Temperature Pulse Rate 98 H 98 H 98 H Respiratory Rate Blood Pressure O2 Sat by Pulse 94 95 94 Oximetry O2 Sat by Pulse Oximetry [ Bilateral] 01/06/22 01/06/22 01/06/22 11:28 11:33 11:35 Temperature Pulse Rate 99 H 90 89 Respiratory Rate Blood Pressure O2 Sat by Pulse 95 95 94 Oximetry O2 Sat by Pulse Oximetry [ Bilateral] 01/06/22 01/06/22 01/06/22 11:38 11:42 11:43 Temperature Pulse Rate 93 H 88 99 H Respiratory Rate Blood Pressure 112/61 O2 Sat by Pulse 95 95 Oximetry O2 Sat by Pulse Oximetry [ Bilateral] 01/06/22 01/06/22 01/06/22 11:48 11:53 11:58 Temperature Pulse Rate 104 H 100 H 104 H Respiratory Rate Blood Pressure O2 Sat by Pulse 97 100 100 Oximetry O2 Sat by Pulse Oximetry [ Bilateral] 01/06/22 01/06/22 01/06/22 12:03 12:08 12:12 Temperature Pulse Rate 100 H 104 H 102 H Respiratory Rate Blood Pressure 119/69 O2 Sat by Pulse 100 100 Oximetry O2 Sat by Pulse Oximetry [ Bilateral] 01/06/22 01/06/22 01/06/22 12:13 12:18 12:23 Temperature Pulse Rate 100 H 99 H 101 H Respiratory Rate Blood Pressure O2 Sat by Pulse 100 100 100 Oximetry O2 Sat by Pulse Oximetry [ Bilateral] 01/06/22 01/06/22 01/06/22 12:28 12:33 12:38 Temperature Pulse Rate 100 H 100 H 101 H Respiratory Rate Blood Pressure O2 Sat by Pulse 100 100 100 Oximetry O2 Sat by Pulse Oximetry [ Bilateral] 01/06/22 01/06/22 01/06/22 12:43 12:48 12:53 Temperature Pulse Rate 96 H 98 H 99 H Respiratory Rate Blood Pressure 161/96 O2 Sat by Pulse 100 100 100 Oximetry O2 Sat by Pulse Oximetry [ Bilateral] 01/06/22 01/06/22 01/06/22 12:58 13:00 13:03 Temperature 98.6 F Pulse Rate 95 H 99 H Respiratory Rate Blood Pressure O2 Sat by Pulse 99 100 Oximetry O2 Sat by Pulse Oximetry [ Bilateral] 01/06/22 01/06/22 01/06/22 13:08 13:11 13:13 Temperature Pulse Rate 98 H 88 88 Respiratory Rate Blood Pressure 136/88 142/91 O2 Sat by Pulse 100 100 Oximetry O2 Sat by Pulse Oximetry [ Bilateral] 01/06/22 01/06/22 01/06/22 13:18 13:23 13:28 Temperature Pulse Rate 91 H 98 H 104 H Respiratory Rate Blood Pressure O2 Sat by Pulse 97 97 96 Oximetry O2 Sat by Pulse Oximetry [ Bilateral] 01/06/22 01/06/22 01/06/22 13:33 13:38 13:43 Temperature Pulse Rate 87 104 H 91 H Respiratory Rate Blood Pressure 137/101 O2 Sat by Pulse 97 98 96 Oximetry O2 Sat by Pulse Oximetry [ Bilateral] 01/06/22 01/06/22 01/06/22 13:44 13:48 13:49 Temperature Pulse Rate 93 H 94 H 93 H Respiratory Rate Blood Pressure 144/92 O2 Sat by Pulse 94 98 Oximetry O2 Sat by Pulse Oximetry [ Bilateral] 01/06/22 01/06/22 01/06/22 13:53 13:58 14:03 Temperature Pulse Rate 92 H 93 H 86 Respiratory Rate Blood Pressure O2 Sat by Pulse 96 96 97 Oximetry O2 Sat by Pulse Oximetry [ Bilateral] 01/06/22 01/06/22 01/06/22 14:08 14:13 14:18 Temperature Pulse Rate 89 100 H 89 Respiratory Rate Blood Pressure 161/100 O2 Sat by Pulse 96 96 95 Oximetry O2 Sat by Pulse Oximetry [ Bilateral] 01/06/22 01/06/22 01/06/22 14:23 14:25 14:28 Temperature Pulse Rate 93 H 99 H 103 H Respiratory Rate Blood Pressure O2 Sat by Pulse 97 94 95 Oximetry O2 Sat by Pulse Oximetry [ Bilateral] 01/06/22 01/06/22 01/06/22 14:33 14:38 14:43 Temperature Pulse Rate 92 H 93 H 92 H Respiratory Rate Blood Pressure 140/84 O2 Sat by Pulse 93 99 93 Oximetry O2 Sat by Pulse Oximetry [ Bilateral] 01/06/22 01/06/22 01/06/22 14:44 14:45 14:48 Temperature Pulse Rate 90 88 93 H Respiratory Rate Blood Pressure 145/86 141/88 138/84 O2 Sat by Pulse 98 Oximetry O2 Sat by Pulse Oximetry [ Bilateral] 01/06/22 01/06/22 01/06/22 14:51 14:53 14:54 Temperature Pulse Rate 90 90 90 Respiratory Rate Blood Pressure 120/67 122/76 O2 Sat by Pulse 98 Oximetry O2 Sat by Pulse Oximetry [ Bilateral] 01/06/22 01/06/22 01/06/22 14:55 14:58 15:01 Temperature Pulse Rate 92 H 93 H 97 H Respiratory Rate Blood Pressure 122/76 129/86 125/77 O2 Sat by Pulse 98 93 Oximetry O2 Sat by Pulse Oximetry [ Bilateral] 01/06/22 01/06/22 01/06/22 15:03 15:08 15:13 Temperature Pulse Rate 89 91 H 95 H Respiratory Rate Blood Pressure O2 Sat by Pulse 97 97 97 Oximetry O2 Sat by Pulse Oximetry [ Bilateral] 01/06/22 01/06/22 01/06/22 15:16 15:18 15:19 Temperature Pulse Rate 90 86 90 Respiratory Rate Blood Pressure 127/78 O2 Sat by Pulse 97 94 Oximetry O2 Sat by Pulse Oximetry [ Bilateral] 01/06/22 01/06/22 01/06/22 15:23 15:28 15:31 Temperature Pulse Rate 91 H 92 H 86 Respiratory Rate Blood Pressure 130/78 O2 Sat by Pulse 95 96 85 Oximetry O2 Sat by Pulse Oximetry [ Bilateral] 01/06/22 01/06/22 01/06/22 15:33 15:38 15:43 Temperature Pulse Rate 82 96 H 96 H Respiratory Rate Blood Pressure O2 Sat by Pulse 95 98 97 Oximetry O2 Sat by Pulse Oximetry [ Bilateral] 01/06/22 01/06/22 01/06/22 15:48 15:53 15:58 Temperature Pulse Rate 85 89 88 Respiratory Rate Blood Pressure O2 Sat by Pulse 96 96 96 Oximetry O2 Sat by Pulse Oximetry [ Bilateral] 01/06/22 01/06/22 01/06/22 16:01 16:03 16:08 Temperature Pulse Rate 87 91 H 89 Respiratory Rate Blood Pressure O2 Sat by Pulse 91 95 95 Oximetry O2 Sat by Pulse Oximetry [ Bilateral] 01/06/22 01/06/22 01/06/22 16:13 16:14 16:18 Temperature Pulse Rate 91 H 90 89 Respiratory Rate Blood Pressure O2 Sat by Pulse 95 92 95 Oximetry O2 Sat by Pulse Oximetry [ Bilateral] 01/06/22 01/06/22 01/06/22 16:20 16:23 16:27 Temperature Pulse Rate 91 H 93 H 91 H Respiratory Rate Blood Pressure 123/88 O2 Sat by Pulse 94 97 89 Oximetry O2 Sat by Pulse Oximetry [ Bilateral] 01/06/22 01/06/22 01/06/22 16:28 16:32 16:33 Temperature Pulse Rate 97 H 100 H 99 H Respiratory Rate Blood Pressure 134/84 O2 Sat by Pulse 96 97 Oximetry O2 Sat by Pulse Oximetry [ Bilateral] 01/06/22 01/06/22 01/06/22 16:35 16:38 16:43 Temperature Pulse Rate 87 91 H 101 H Respiratory Rate Blood Pressure O2 Sat by Pulse 92 97 98 Oximetry O2 Sat by Pulse Oximetry [ Bilateral] 01/06/22 01/06/22 01/06/22 16:45 16:48 16:50 Temperature Pulse Rate 92 H 97 H 82 Respiratory Rate Blood Pressure O2 Sat by Pulse 92 96 93 Oximetry O2 Sat by Pulse Oximetry [ Bilateral] 01/06/22 01/06/22 01/06/22 16:53 16:58 17:00 Temperature 98.3 F Pulse Rate 87 92 H 95 H Respiratory Rate Blood Pressure 116/66 O2 Sat by Pulse 98 98 Oximetry O2 Sat by Pulse Oximetry [ Bilateral] 01/06/22 01/06/22 01/06/22 17:03 17:08 17:13 Temperature Pulse Rate 91 H 94 H 94 H Respiratory Rate Blood Pressure O2 Sat by Pulse 96 98 98 Oximetry O2 Sat by Pulse Oximetry [ Bilateral] 01/06/22 01/06/22 01/06/22 17:15 17:18 17:23 Temperature Pulse Rate 95 H 93 H 94 H Respiratory Rate Blood Pressure 117/66 O2 Sat by Pulse 99 98 Oximetry O2 Sat by Pulse Oximetry [ Bilateral] 01/06/22 01/06/22 01/06/22 17:28 17:31 17:33 Temperature Pulse Rate 88 92 H 90 Respiratory Rate Blood Pressure 119/66 O2 Sat by Pulse 96 92 96 Oximetry O2 Sat by Pulse Oximetry [ Bilateral] 01/06/22 01/06/22 01/06/22 17:38 17:39 17:43 Temperature Pulse Rate 95 H 95 H Respiratory Rate Blood Pressure O2 Sat by Pulse 97 92 95 Oximetry O2 Sat by Pulse Oximetry [ Bilateral] 01/06/22 01/06/22 01/06/22 17:44 17:47 17:48 Temperature Pulse Rate 93 H 97 H 95 H Respiratory Rate Blood Pressure 113/60 O2 Sat by Pulse 94 95 Oximetry O2 Sat by Pulse Oximetry [ Bilateral] 01/06/22 01/06/22 01/06/22 17:50 17:53 17:56 Temperature Pulse Rate 95 H 96 H 94 H Respiratory Rate Blood Pressure O2 Sat by Pulse 94 95 93 Oximetry O2 Sat by Pulse Oximetry [ Bilateral] 01/06/22 01/06/22 01/06/22 17:58 18:02 18:03 Temperature Pulse Rate 99 H 96 H 97 H Respiratory Rate Blood Pressure 110/58 O2 Sat by Pulse 96 87 96 Oximetry O2 Sat by Pulse Oximetry [ Bilateral] 01/06/22 01/06/22 01/06/22 18:08 18:13 18:15 Temperature Pulse Rate 95 H 95 H 95 H Respiratory Rate Blood Pressure 106/58 O2 Sat by Pulse 97 96 Oximetry O2 Sat by Pulse Oximetry [ Bilateral] 01/06/22 01/06/22 01/06/22 18:18 18:23 18:26 Temperature Pulse Rate 95 H 95 H 96 H Respiratory Rate Blood Pressure O2 Sat by Pulse 97 95 94 Oximetry O2 Sat by Pulse Oximetry [ Bilateral] 01/06/22 01/06/22 01/06/22 18:28 18:32 18:33 Temperature Pulse Rate 94 H 93 H 96 H Respiratory Rate Blood Pressure 114/57 O2 Sat by Pulse 95 88 97 Oximetry O2 Sat by Pulse Oximetry [ Bilateral] 01/06/22 01/06/22 01/06/22 18:37 18:38 18:43 Temperature Pulse Rate 93 H 97 H 96 H Respiratory Rate Blood Pressure O2 Sat by Pulse 94 96 98 Oximetry O2 Sat by Pulse Oximetry [ Bilateral] 01/06/22 01/06/22 01/06/22 18:44 18:47 18:48 Temperature Pulse Rate 95 H 96 H 98 H Respiratory Rate Blood Pressure 115/57 O2 Sat by Pulse 94 94 Oximetry O2 Sat by Pulse Oximetry [ Bilateral] 0501/06/22 01/06/22 18:50 18:53 18:57 Temperature Pulse Rate 97 H 97 H 99 H Respiratory Rate Blood Pressure O2 Sat by Pulse 94 94 94 Oximetry O2 Sat by Pulse Oximetry [ Bilateral] 01/06/22 01/06/22 01/06/22 18:58 19:01 19:02 Temperature Pulse Rate 99 H 97 H Respiratory Rate Blood Pressure 117/62 O2 Sat by Pulse 96 Oximetry O2 Sat by Pulse 100 Oximetry [ Bilateral] 01/06/22 01/06/22 01/06/22 19:03 19:04 19:08 Temperature Pulse Rate 97 H 98 H 97 H Respiratory 16 Rate Blood Pressure O2 Sat by Pulse 94 95 93 Oximetry O2 Sat by Pulse Oximetry [ Bilateral] 01/06/22 01/06/22 01/06/22 19:13 19:15 19:18 Temperature Pulse Rate 97 H 99 H 98 H Respiratory Rate Blood Pressure 116/61 O2 Sat by Pulse 96 94 95 Oximetry O2 Sat by Pulse Oximetry [ Bilateral] 01/06/22 01/06/22 01/06/22 19:21 19:23 19:28 Temperature Pulse Rate 98 H 99 H 96 H Respiratory Rate Blood Pressure O2 Sat by Pulse 94 95 94 Oximetry O2 Sat by Pulse Oximetry [ Bilateral] 01/06/22 01/06/22 01/06/22 19:31 19:33 19:38 Temperature Pulse Rate 98 H 99 H 99 H Respiratory Rate Blood Pressure 121/66 O2 Sat by Pulse 95 97 Oximetry O2 Sat by Pulse Oximetry [ Bilateral] 01/06/22 01/06/22 01/06/22 19:43 19:45 19:47 Temperature Pulse Rate 99 H 136 H 100 H Respiratory Rate Blood Pressure 128/64 O2 Sat by Pulse 97 91 Oximetry O2 Sat by Pulse Oximetry [ Bilateral] 01/06/22 01/06/22 01/06/22 19:48 19:53 19:58 Temperature Pulse Rate 104 H 100 H 102 H Respiratory Rate Blood Pressure O2 Sat by Pulse 96 97 96 Oximetry O2 Sat by Pulse Oximetry [ Bilateral] 01/06/22 01/06/22 01/06/22 20:02 20:03 20:08 Temperature Pulse Rate 105 H 102 H 95 H Respiratory Rate Blood Pressure 130/63 O2 Sat by Pulse 94 97 96 Oximetry O2 Sat by Pulse Oximetry [ Bilateral] 01/06/22 20:09 Temperature Pulse Rate 96 H Respiratory Rate Blood Pressure O2 Sat by Pulse 94 Oximetry O2 Sat by Pulse Oximetry [ Bilateral] - Exam Breasts: normal Cardiovascular: Regular rate Lungs: Normal air movement Abdomen: Present: normal appearance, soft Vulva: both: normal Uterus: Present: normal FHR: category 2 Uterine Contraction Monitor Mode: Internal Cervical Dilatation: 5.5 Cervical Effacement Percentage: 80 station: 0 Uterine Contraction Frequency (min): 2-3 Uterine Contraction Duration: 60 Uterine Contraction Pattern: Regular Uterine Tone Measurement Phase: Contraction Uterine Contraction Intensity: Strong/Firm Extremities: edema - Labs Labs: Abnormal Labs 01/04/22 01/04/22 01/04/22 16:12 16:12 19:28 RBC 3.35 L MCHC 35 H Creatinine 0.5 L Magnesium ALT 6 L Lactate Dehydrogenase 295 H Urine WBC (Auto) 7.0 H Urine Creatinine Urine Total Protein 01/04/22 01/05/22 01/05/22 19:28 06:50 12:35 RBC MCHC Creatinine Magnesium 4.50 H 16.70 H ALT Lactate Dehydrogenase Urine WBC (Auto) Urine Creatinine 346.9 H Urine Total Protein 282 H 01/05/22 01/05/22 01/06/22 15:05 21:16 02:41 RBC MCHC Creatinine Magnesium 4.80 H 4.80 H 5.40 H ALT Lactate Dehydrogenase Urine WBC (Auto) Urine Creatinine Urine Total Protein 01/06/22 01/06/22 07:55 15:37 RBC MCHC Creatinine Magnesium 5.80 H 5.30 H ALT Lactate Dehydrogenase Urine WBC (Auto) Urine Creatinine Urine Total Protein Laboratory Results - last 24 hr 01/05/22 01/06/22 01/06/22 21:16 02:41 07:55 Magnesium 4.80 H 5.40 H 5.80 H 01/06/22 15:37 Magnesium 5.30 H
--- NOTE | 2022-01-06 23:10 | Progress Note ---
Assessment and Plan - Patient Problems (1) 37 weeks gestation of Current Visit: Yes Status: Acute (2) Pre-eclampsia during in third trimester, antepartum Current Visit: Yes Status: Acute Subjective - Subjective Date of service: 01/06/22 Principal diagnosis: IUP @ 37+5; IOL for pre-e Patient reports: loss of fluid, vaginal bleeding Objective - Vital Signs Vital Signs: Vital Signs - 12hr 01/06/22 01/06/22 01/06/22 11:03 11:08 11:12 Temperature Pulse Rate 100 H 98 H 97 H Respiratory Rate Blood Pressure 110/57 O2 Sat by Pulse 96 95 Oximetry O2 Sat by Pulse Oximetry [ Bilateral] 01/06/22 01/06/22 01/06/22 11:13 11:17 11:18 Temperature Pulse Rate 106 H 97 H 98 H Respiratory Rate Blood Pressure O2 Sat by Pulse 97 94 94 Oximetry O2 Sat by Pulse Oximetry [ Bilateral] 01/06/22 01/06/22 01/06/22 11:23 11:24 11:28 Temperature Pulse Rate 98 H 98 H 99 H Respiratory Rate Blood Pressure O2 Sat by Pulse 95 94 95 Oximetry O2 Sat by Pulse Oximetry [ Bilateral] 01/06/22 01/06/22 01/06/22 11:33 11:35 11:38 Temperature Pulse Rate 90 89 93 H Respiratory Rate Blood Pressure O2 Sat by Pulse 95 94 95 Oximetry O2 Sat by Pulse Oximetry [ Bilateral] 01/06/22 01/06/22 01/06/22 11:42 11:43 11:48 Temperature Pulse Rate 88 99 H 104 H Respiratory Rate Blood Pressure 112/61 O2 Sat by Pulse 95 97 Oximetry O2 Sat by Pulse Oximetry [ Bilateral] 01/06/22 01/06/22 01/06/22 11:53 11:58 12:03 Temperature Pulse Rate 100 H 104 H 100 H Respiratory Rate Blood Pressure O2 Sat by Pulse 100 100 100 Oximetry O2 Sat by Pulse Oximetry [ Bilateral] 01/06/22 01/06/22 01/06/22 12:08 12:12 12:13 Temperature Pulse Rate 104 H 102 H 100 H Respiratory Rate Blood Pressure 119/69 O2 Sat by Pulse 100 100 Oximetry O2 Sat by Pulse Oximetry [ Bilateral] 01/06/22 01/06/22 01/06/22 12:18 12:23 12:28 Temperature Pulse Rate 99 H 101 H 100 H Respiratory Rate Blood Pressure O2 Sat by Pulse 100 100 100 Oximetry O2 Sat by Pulse Oximetry [ Bilateral] 01/06/22 01/06/22 01/06/22 12:33 12:38 12:43 Temperature Pulse Rate 100 H 101 H 96 H Respiratory Rate Blood Pressure 161/96 O2 Sat by Pulse 100 100 100 Oximetry O2 Sat by Pulse Oximetry [ Bilateral] 01/06/22 01/06/22 01/06/22 12:48 12:53 12:58 Temperature Pulse Rate 98 H 99 H 95 H Respiratory Rate Blood Pressure O2 Sat by Pulse 100 100 99 Oximetry O2 Sat by Pulse Oximetry [ Bilateral] 01/06/22 01/06/22 01/06/22 13:00 13:03 13:08 Temperature 98.6 F Pulse Rate 99 H 98 H Respiratory Rate Blood Pressure O2 Sat by Pulse 100 100 Oximetry O2 Sat by Pulse Oximetry [ Bilateral] 01/06/22 01/06/22 01/06/22 13:11 13:13 13:18 Temperature Pulse Rate 88 88 91 H Respiratory Rate Blood Pressure 136/88 142/91 O2 Sat by Pulse 100 97 Oximetry O2 Sat by Pulse Oximetry [ Bilateral] 01/06/22 01/06/22 01/06/22 13:23 13:28 13:33 Temperature Pulse Rate 98 H 104 H 87 Respiratory Rate Blood Pressure O2 Sat by Pulse 97 96 97 Oximetry O2 Sat by Pulse Oximetry [ Bilateral] 01/06/22 01/06/22 01/06/22 13:38 13:43 13:44 Temperature Pulse Rate 104 H 91 H 93 H Respiratory Rate Blood Pressure 137/101 O2 Sat by Pulse 98 96 94 Oximetry O2 Sat by Pulse Oximetry [ Bilateral] 01/06/22 01/06/22 01/06/22 13:48 13:49 13:53 Temperature Pulse Rate 94 H 93 H 92 H Respiratory Rate Blood Pressure 144/92 O2 Sat by Pulse 98 96 Oximetry O2 Sat by Pulse Oximetry [ Bilateral] 01/06/22 01/06/22 01/06/22 13:58 14:03 14:08 Temperature Pulse Rate 93 H 86 89 Respiratory Rate Blood Pressure O2 Sat by Pulse 96 97 96 Oximetry O2 Sat by Pulse Oximetry [ Bilateral] 01/06/22 01/06/22 01/06/22 14:13 14:18 14:23 Temperature Pulse Rate 100 H 89 93 H Respiratory Rate Blood Pressure 161/100 O2 Sat by Pulse 96 95 97 Oximetry O2 Sat by Pulse Oximetry [ Bilateral] 01/06/22 01/06/22 01/06/22 14:25 14:28 14:33 Temperature Pulse Rate 99 H 103 H 92 H Respiratory Rate Blood Pressure O2 Sat by Pulse 94 95 93 Oximetry O2 Sat by Pulse Oximetry [ Bilateral] 01/06/22 01/06/22 01/06/22 14:38 14:43 14:44 Temperature Pulse Rate 93 H 92 H 90 Respiratory Rate Blood Pressure 140/84 145/86 O2 Sat by Pulse 99 93 Oximetry O2 Sat by Pulse Oximetry [ Bilateral] 01/06/22 01/06/22 01/06/22 14:45 14:48 14:51 Temperature Pulse Rate 88 93 H 90 Respiratory Rate Blood Pressure 141/88 138/84 120/67 O2 Sat by Pulse 98 Oximetry O2 Sat by Pulse Oximetry [ Bilateral] 01/06/22 01/06/22 01/06/22 14:53 14:54 14:55 Temperature Pulse Rate 90 90 92 H Respiratory Rate Blood Pressure 122/76 122/76 O2 Sat by Pulse 98 Oximetry O2 Sat by Pulse Oximetry [ Bilateral] 01/06/22 01/06/22 01/06/22 14:58 15:01 15:03 Temperature Pulse Rate 93 H 97 H 89 Respiratory Rate Blood Pressure 129/86 125/77 O2 Sat by Pulse 98 93 97 Oximetry O2 Sat by Pulse Oximetry [ Bilateral] 01/06/22 01/06/22 01/06/22 15:08 15:13 15:16 Temperature Pulse Rate 91 H 95 H 90 Respiratory Rate Blood Pressure 127/78 O2 Sat by Pulse 97 97 Oximetry O2 Sat by Pulse Oximetry [ Bilateral] 01/06/22 01/06/22 01/06/22 15:18 15:19 15:23 Temperature Pulse Rate 86 90 91 H Respiratory Rate Blood Pressure O2 Sat by Pulse 97 94 95 Oximetry O2 Sat by Pulse Oximetry [ Bilateral] 01/06/22 01/06/22 01/06/22 15:28 15:31 15:33 Temperature Pulse Rate 92 H 86 82 Respiratory Rate Blood Pressure 130/78 O2 Sat by Pulse 96 85 95 Oximetry O2 Sat by Pulse Oximetry [ Bilateral] 01/06/22 01/06/22 01/06/22 15:38 15:43 15:48 Temperature Pulse Rate 96 H 96 H 85 Respiratory Rate Blood Pressure O2 Sat by Pulse 98 97 96 Oximetry O2 Sat by Pulse Oximetry [ Bilateral] 01/06/22 01/06/22 01/06/22 15:53 15:58 16:01 Temperature Pulse Rate 89 88 87 Respiratory Rate Blood Pressure O2 Sat by Pulse 96 96 91 Oximetry O2 Sat by Pulse Oximetry [ Bilateral] 01/06/22 01/06/22 01/06/22 16:03 16:08 16:13 Temperature Pulse Rate 91 H 89 91 H Respiratory Rate Blood Pressure O2 Sat by Pulse 95 95 95 Oximetry O2 Sat by Pulse Oximetry [ Bilateral] 01/06/22 01/06/22 01/06/22 16:14 16:18 16:20 Temperature Pulse Rate 90 89 91 H Respiratory Rate Blood Pressure O2 Sat by Pulse 92 95 94 Oximetry O2 Sat by Pulse Oximetry [ Bilateral] 01/06/22 01/06/22 01/06/22 16:23 16:27 16:28 Temperature Pulse Rate 93 H 91 H 97 H Respiratory Rate Blood Pressure 123/88 O2 Sat by Pulse 97 89 96 Oximetry O2 Sat by Pulse Oximetry [ Bilateral] 01/06/22 01/06/22 01/06/22 16:32 16:33 16:35 Temperature Pulse Rate 100 H 99 H 87 Respiratory Rate Blood Pressure 134/84 O2 Sat by Pulse 97 92 Oximetry O2 Sat by Pulse Oximetry [ Bilateral] 01/06/22 01/06/22 01/06/22 16:38 16:43 16:45 Temperature Pulse Rate 91 H 101 H 92 H Respiratory Rate Blood Pressure O2 Sat by Pulse 97 98 92 Oximetry O2 Sat by Pulse Oximetry [ Bilateral] 01/06/22 01/06/22 01/06/22 16:48 16:50 16:53 Temperature Pulse Rate 97 H 82 87 Respiratory Rate Blood Pressure O2 Sat by Pulse 96 93 98 Oximetry O2 Sat by Pulse Oximetry [ Bilateral] 01/06/22 01/06/22 01/06/22 16:58 17:00 17:03 Temperature 98.3 F Pulse Rate 92 H 95 H 91 H Respiratory Rate Blood Pressure 116/66 O2 Sat by Pulse 98 96 Oximetry O2 Sat by Pulse Oximetry [ Bilateral] 01/06/22 01/06/22 01/06/22 17:08 17:13 17:15 Temperature Pulse Rate 94 H 94 H 95 H Respiratory Rate Blood Pressure 117/66 O2 Sat by Pulse 98 98 Oximetry O2 Sat by Pulse Oximetry [ Bilateral] 01/06/22 01/06/22 01/06/22 17:18 17:23 17:28 Temperature Pulse Rate 93 H 94 H 88 Respiratory Rate Blood Pressure O2 Sat by Pulse 99 98 96 Oximetry O2 Sat by Pulse Oximetry [ Bilateral] 01/06/22 01/06/22 01/06/22 17:31 17:33 17:38 Temperature Pulse Rate 92 H 90 95 H Respiratory Rate Blood Pressure 119/66 O2 Sat by Pulse 92 96 97 Oximetry O2 Sat by Pulse Oximetry [ Bilateral] 01/06/22 01/06/22 01/06/22 17:39 17:43 17:44 Temperature Pulse Rate 95 H 93 H Respiratory Rate Blood Pressure O2 Sat by Pulse 92 95 94 Oximetry O2 Sat by Pulse Oximetry [ Bilateral] 01/06/22 01/06/22 01/06/22 17:47 17:48 17:50 Temperature Pulse Rate 97 H 95 H 95 H Respiratory Rate Blood Pressure 113/60 O2 Sat by Pulse 95 94 Oximetry O2 Sat by Pulse Oximetry [ Bilateral] 01/06/22 01/06/22 01/06/22 17:53 17:56 17:58 Temperature Pulse Rate 96 H 94 H 99 H Respiratory Rate Blood Pressure O2 Sat by Pulse 95 93 96 Oximetry O2 Sat by Pulse Oximetry [ Bilateral] 01/06/22 01/06/22 01/06/22 18:02 18:03 18:08 Temperature Pulse Rate 96 H 97 H 95 H Respiratory Rate Blood Pressure 110/58 O2 Sat by Pulse 87 96 97 Oximetry O2 Sat by Pulse Oximetry [ Bilateral] 01/06/22 01/06/22 01/06/22 18:13 18:15 18:18 Temperature Pulse Rate 95 H 95 H 95 H Respiratory Rate Blood Pressure 106/58 O2 Sat by Pulse 96 97 Oximetry O2 Sat by Pulse Oximetry [ Bilateral] 01/06/22 01/06/22 01/06/22 18:23 18:26 18:28 Temperature Pulse Rate 95 H 96 H 94 H Respiratory Rate Blood Pressure O2 Sat by Pulse 95 94 95 Oximetry O2 Sat by Pulse Oximetry [ Bilateral] 01/06/22 01/06/22 01/06/22 18:32 18:33 18:37 Temperature Pulse Rate 93 H 96 H 93 H Respiratory Rate Blood Pressure 114/57 O2 Sat by Pulse 88 97 94 Oximetry O2 Sat by Pulse Oximetry [ Bilateral] 01/06/22 01/06/22 01/06/22 18:38 18:43 18:44 Temperature Pulse Rate 97 H 96 H 95 H Respiratory Rate Blood Pressure O2 Sat by Pulse 96 98 94 Oximetry O2 Sat by Pulse Oximetry [ Bilateral] 01/06/22 01/06/22 01/06/22 18:47 18:48 18:50 Temperature Pulse Rate 96 H 98 H 97 H Respiratory Rate Blood Pressure 115/57 O2 Sat by Pulse 94 94 Oximetry O2 Sat by Pulse Oximetry [ Bilateral] 01/06/22 01/06/22 01/06/22 18:53 18:57 18:58 Temperature Pulse Rate 97 H 99 H 99 H Respiratory Rate Blood Pressure O2 Sat by Pulse 94 94 96 Oximetry O2 Sat by Pulse Oximetry [ Bilateral] 01/06/22 01/06/22 01/06/22 19:01 19:02 19:03 Temperature Pulse Rate 97 H 97 H Respiratory Rate Blood Pressure 117/62 O2 Sat by Pulse 94 Oximetry O2 Sat by Pulse 100 Oximetry [ Bilateral] 01/06/22 01/06/22 01/06/22 19:04 19:08 19:13 Temperature Pulse Rate 98 H 97 H 97 H Respiratory 16 Rate Blood Pressure O2 Sat by Pulse 95 93 96 Oximetry O2 Sat by Pulse Oximetry [ Bilateral] 01/06/22 01/06/22 01/06/22 19:15 19:18 19:21 Temperature Pulse Rate 99 H 98 H 98 H Respiratory Rate Blood Pressure 116/61 O2 Sat by Pulse 94 95 94 Oximetry O2 Sat by Pulse Oximetry [ Bilateral] 01/06/22 01/06/22 01/06/22 19:23 19:28 19:31 Temperature Pulse Rate 99 H 96 H 98 H Respiratory Rate Blood Pressure 121/66 O2 Sat by Pulse 95 94 Oximetry O2 Sat by Pulse Oximetry [ Bilateral] 01/06/22 01/06/22 01/06/22 19:33 19:38 19:43 Temperature Pulse Rate 99 H 99 H 99 H Respiratory Rate Blood Pressure O2 Sat by Pulse 95 97 97 Oximetry O2 Sat by Pulse Oximetry [ Bilateral] 01/06/22 01/06/22 01/06/22 19:45 19:47 19:48 Temperature Pulse Rate 136 H 100 H 104 H Respiratory Rate Blood Pressure 128/64 O2 Sat by Pulse 91 96 Oximetry O2 Sat by Pulse Oximetry [ Bilateral] 01/06/22 01/06/22 01/06/22 19:53 19:58 20:02 Temperature Pulse Rate 100 H 102 H 105 H Respiratory Rate Blood Pressure 130/63 O2 Sat by Pulse 97 96 94 Oximetry O2 Sat by Pulse Oximetry [ Bilateral] 01/06/22 01/06/22 01/06/22 20:03 20:08 20:09 Temperature Pulse Rate 102 H 95 H 96 H Respiratory Rate Blood Pressure O2 Sat by Pulse 97 96 94 Oximetry O2 Sat by Pulse Oximetry [ Bilateral] 01/06/22 01/06/22 01/06/22 20:13 20:15 20:18 Temperature Pulse Rate 93 H 97 H 97 H Respiratory Rate Blood Pressure 110/80 O2 Sat by Pulse 93 92 86 Oximetry O2 Sat by Pulse Oximetry [ Bilateral] 01/06/22 01/06/22 01/06/22 20:21 20:23 20:28 Temperature Pulse Rate 96 H 94 H 100 H Respiratory Rate Blood Pressure O2 Sat by Pulse 94 96 95 Oximetry O2 Sat by Pulse Oximetry [ Bilateral] 01/06/22 01/06/22 01/06/22 20:31 20:33 20:38 Temperature Pulse Rate 90 94 H 100 H Respiratory Rate Blood Pressure 119/74 O2 Sat by Pulse 95 97 Oximetry O2 Sat by Pulse Oximetry [ Bilateral] 01/06/22 01/06/22 01/06/22 20:43 20:46 20:48 Temperature Pulse Rate 91 H 90 92 H Respiratory Rate Blood Pressure 120/65 O2 Sat by Pulse 98 97 Oximetry O2 Sat by Pulse Oximetry [ Bilateral] 01/06/22 01/06/22 01/06/22 20:53 20:58 21:00 Temperature 98.3 F Pulse Rate 91 H 93 H Respiratory Rate Blood Pressure O2 Sat by Pulse 97 98 Oximetry O2 Sat by Pulse Oximetry [ Bilateral] 01/06/22 01/06/22 01/06/22 21:02 21:03 21:08 Temperature Pulse Rate 92 H 92 H 92 H Respiratory Rate Blood Pressure 116/65 O2 Sat by Pulse 98 98 Oximetry O2 Sat by Pulse Oximetry [ Bilateral] 01/06/22 01/06/22 01/06/22 21:10 21:13 21:16 Temperature Pulse Rate 108 H 98 H 93 H Respiratory Rate Blood Pressure O2 Sat by Pulse 88 96 93 Oximetry O2 Sat by Pulse Oximetry [ Bilateral] 01/06/22 01/06/22 01/06/22 21:18 21:23 21:28 Temperature Pulse Rate 98 H 98 H 100 H Respiratory Rate Blood Pressure O2 Sat by Pulse 97 97 96 Oximetry O2 Sat by Pulse Oximetry [ Bilateral] 01/06/22 01/06/22 01/06/22 21:31 21:33 21:38 Temperature Pulse Rate 100 H 102 H 100 H Respiratory Rate Blood Pressure O2 Sat by Pulse 94 96 93 Oximetry O2 Sat by Pulse Oximetry [ Bilateral] 01/06/22 01/06/22 01/06/22 21:39 21:43 21:46 Temperature Pulse Rate 99 H 100 H 100 H Respiratory Rate Blood Pressure 104/58 O2 Sat by Pulse 94 94 76 L Oximetry O2 Sat by Pulse Oximetry [ Bilateral] 01/06/22 01/06/22 01/06/22 21:48 21:53 21:58 Temperature Pulse Rate 100 H 105 H 101 H Respiratory Rate Blood Pressure O2 Sat by Pulse 93 96 96 Oximetry O2 Sat by Pulse Oximetry [ Bilateral] 01/06/22 01/06/22 01/06/22 22:01 22:04 22:07 Temperature Pulse Rate 101 H 102 H 101 H Respiratory Rate Blood Pressure O2 Sat by Pulse 94 95 94 Oximetry O2 Sat by Pulse Oximetry [ Bilateral] 01/06/22 01/06/22 01/06/22 22:09 22:12 22:14 Temperature Pulse Rate 101 H 106 H 109 H Respiratory Rate Blood Pressure O2 Sat by Pulse 95 94 94 Oximetry O2 Sat by Pulse Oximetry [ Bilateral] 01/06/22 01/06/22 01/06/22 22:19 22:24 22:29 Temperature Pulse Rate 100 H 101 H 97 H Respiratory Rate Blood Pressure O2 Sat by Pulse 98 99 98 Oximetry O2 Sat by Pulse Oximetry [ Bilateral] 01/06/22 01/06/22 01/06/22 22:31 22:34 22:39 Temperature Pulse Rate 96 H 95 H 99 H Respiratory Rate Blood Pressure 130/78 O2 Sat by Pulse 98 95 Oximetry O2 Sat by Pulse Oximetry [ Bilateral] 01/06/22 01/06/22 01/06/22 22:44 22:46 22:49 Temperature Pulse Rate 97 H 104 H 99 H Respiratory Rate Blood Pressure 122/84 O2 Sat by Pulse 97 98 Oximetry O2 Sat by Pulse Oximetry [ Bilateral] 01/06/22 01/06/22 22:50 22:54 Temperature Pulse Rate 108 H 101 H Respiratory Rate Blood Pressure O2 Sat by Pulse 92 96 Oximetry O2 Sat by Pulse Oximetry [ Bilateral] - Exam Narrative Exam: Cat 1 tracing with early decelerations noted, to bedside for pt evaluation. Internal monitors in place. Upon entering room, pt lying right lateral in bed, with right leg in stirrup. Pitocin currently infusing @ 36mu. Epidural infusing @ 12. Byrd draining clear yellow urine. SCDs in place and on. Comfortable, not feeling contractions, denies vaginal/ rectal pressure. Also denies chest pain, SOB, headache, and vision changes. Physical exam notable for +2 bilateral pitting edema ascending to the knees. VSS. SVE: c/c/+1, bloody show noted at perineum. Repositioned to High Fowlers position with legs lowered. RN to half pitocin to 18 mu and decrease epidural with pt consent. Pt and partner feeling excited, educated on second stage and what to anticipate. Plan to reassess in 20-30 minutes for descent and to initiate pushing with contractions or PRN for Cat 2 tracing. Cardiovascular: Regular rate Lungs: Normal air movement Vulva: both: normal Uterus: Present: normal FHR: category 1 Uterine Contraction Monitor Mode: Internal Cervical Dilatation: 10 Cervical Effacement Percentage: 100 station: +1 Uterine Contraction Duration: q40 seconds Uterine Contraction Pattern: Regular Uterine Tone Measurement Phase: Resting Uterine Contraction Intensity: Mild Extremities: edema - Labs Labs: Abnormal Labs 01/04/22 01/04/22 01/04/22 16:12 16:12 19:28 RBC 3.35 L MCHC 35 H Creatinine 0.5 L Magnesium ALT 6 L Lactate Dehydrogenase 295 H Urine WBC (Auto) 7.0 H Urine Creatinine Urine Total Protein 01/04/22 01/05/22 01/05/22 19:28 06:50 12:35 RBC MCHC Creatinine Magnesium 4.50 H 16.70 H ALT Lactate Dehydrogenase Urine WBC (Auto) Urine Creatinine 346.9 H Urine Total Protein 282 H 01/05/22 01/05/22 01/06/22 15:05 21:16 02:41 RBC MCHC Creatinine Magnesium 4.80 H 4.80 H 5.40 H ALT Lactate Dehydrogenase Urine WBC (Auto) Urine Creatinine Urine Total Protein 01/06/22 01/06/22 01/06/22 07:55 15:37 20:37 RBC MCHC Creatinine Magnesium 5.80 H 5.30 H 6.10 H ALT Lactate Dehydrogenase Urine WBC (Auto) Urine Creatinine Urine Total Protein Laboratory Results - last 24 hr 01/06/22 01/06/22 01/06/22 02:41 07:55 15:37 Magnesium 5.40 H 5.80 H 5.30 H 01/06/22 20:37 Magnesium 6.10 H
--- NOTE | 2022-01-07 00:53 | Procedure Note ---
OB Delivery Note - Delivery Date of Delivery: 01/07/22 Canvas Worker: PITER JENKINS (Radha Kelly [facility]) Estimated blood loss: other (800mL) - Vaginal Delivery position: OA Intrapartum events: preeclampsia, hemorrhage, uterine atony Delivery induction: cervidil Delivery augmentation: rupture of membranes, pitocin Delivery monitor: external FHT, external uterine, internal FHT, internal uterine Route of delivery: Delivery placenta: spontaneous Episiotomy: none Delivery laceration: 2nd degree, other (R labial) Delivery repair: vicryl Anesthesia: epidural Delivery comments: Pt endorsing mild pressure with contractions. Pushing initiated @2330, excellent maternal effort progressed to of vigorous male infant. ASSEMBLER ERECTOR at bedside for delivery. [place] stimulated and dried, immediately placed skin to skin to maternal abdomen. Delayed cord clamping x3 min, doubly clamped and cut by FOB, 3vc. pitocin initiated. Delivery of intact [place] placenta, brisk bleeding noted. Cytotec NH and Pitocin IM administered. 2nd degree laceration repaired with 3.[address] and right labial laceration repaired with 3.0 SH. QBL: 800ML + 6 saturated raytec, weight pending. Counts performed with primary RN x2 and correct x2. Maternal dyad left in stable condition for continued recovery with primary RN @0030. - Infant A at 1 minute: 8 at 5 minutes: 9 Gender: Male ([id number], Derian)
[2022-01-07] MEDS: ACETAMINOPHEN 325 MG TAB PO PRN (03:03)
[2022-01-07 03:12] LABS: Hematocrit 25.5 % (30.3-42.9); Hemoglobin 8.3 gm/dl (10.1-14.3)
[2022-01-07] MEDS ORDERED: ACETAMINOPHEN 325 MG TAB PO PRN (03:41)
[2022-01-07] MEDS ORDERED: MAGNESIUM HYDROXIDE (MOM) ORAL LIQD UDC PO PRN (03:41)
[2022-01-07] MEDS ORDERED: WITCH HAZEL/ GLYCERIN PAD TP PRN (03:41)
[2022-01-07] MEDS ORDERED: PROMETHAZINE 25 MG TAB PO PRN (03:41)
[2022-01-07] MEDS ORDERED: LANOLIN/ZINC/DIMETHICONE (LANSINOH) 7 GM TP PRN (03:41)
[2022-01-07] MEDS ORDERED: BENZOCAINE/MENTHOL 20/0.5% TOP SPRAY 56 GM TP PRN (03:41)
[2022-01-07] MEDS ORDERED: diphenhydrAMINE 25 MG CAP PO PRN (03:41)
[2022-01-07] MEDS: IBUPROFEN 800 MG TAB PO SCH ×3 (08:19→22:15)
[2022-01-07 09:43] LABS: Hemoglobin 6.8 gm/dl (10.1-14.3)
[2022-01-07 09:48] LABS: Hematocrit 19.7 % (30.3-42.9)
--- NOTE | 2022-01-07 10:16 | Progress Note ---
Assessment and Plan Pt denies all complaints at this time. Lab results reviewed with pt. Risks and benefits of Blood transfusion d/w pt. Pt verbalizes understanding and agrees to blood transfusion. Exam unremarkable. VSSAF, H&H with asymptomatic anemia s/p acute blood loss. Dr. Pino made aware. Orders placed. Kim Souza RN notified of new orders, POC reviewed with RN. Lucio MORATAYA currently at bedside starting second IV access. - Patient Problems (1) Pre-eclampsia, delivered Current Visit: Yes Status: Acute Plan to address problem: Continue Magnesium therapy x24hrs post and seizure precautions continue obtaining magnesium level q6h strict I&O continue Labetalol 300mg TID PO monitor BP and ssx for worsening preeclampsia status and notify provider with any changes (2) (normal spontaneous vaginal delivery) Current Visit: Yes Status: Acute (3) PPH ( hemorrhage) Current Visit: Yes Status: Acute Plan to address problem: transfuse 1 unit PRBC monitor VS closely and per protocols pretreat with Tylenol and Benadryl as ordered redraw CBC 4 hours after transfusion notify provider with any changes in status or ssx Subjective - Subjective Date of service: 01/07/22 Principal diagnosis: Preeclampsia on Mag, s/p with hemmorhage Interval history: EDC Confirmation: 01/22/2022 Past History : 1 Term Births: 0 Premature Births: 0 Living Children: 0 Para: 0 Mult. Births: 0 Prev : 0 Aborta: 0 Elect. Ab: 0 Spont. Ab: 0 Ectopics: 0 Risk Factors: Smoked Tobacco Use: Never smoker Smokeless Tobacco Use: Never Passive Smoke Exposure: no HIV High Risk Behavior: no Alcohol Use: no Drug Use: no Past Medical History Reviewed and updated today: recurrent cyst on chest Past Surgical History: Reviewed and updated today: cyst removal on chest 07/20/2020 Denies any prior history of complications from anesthesia. Denies any history of surgical complications. Family History Summary: Mother - Has Family History of Hypertension - Entered On: 12/30/2021 MGF - Has Family History of Diabetes - Entered On: 12/30/2021 Risk Factors: Counseled to Quit/Cut Down: yes HIV High Risk Behavior: low risk Seatbelt Use: preg-counselor aid % No Dietary Counseling Reason: pn yes Past Medical History Anesthesia Complications: negative Anemia: negative Autoimmune Disorder: negative Bleeding Disorder: negative Blood Transfusions: negative Breast Disease: negative Diabetes: negative Heart Disease: negative Hypertension: negative Hepatitis/Liver Disease: negative Kidney Disease/UTI: negative Neurologic/Epilepsy/Migraines: negative Phlebitis/Varicosities: negative Psychiatric: negative Pulmonary Disease/Asthma: negative Thyroid Disease: negative 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 Denies any history of surgical complications. Abnormal PAP: negative, pt reports she has never had a pap, pt requests pap to be performed CASH Exposure: negative Infertility: negative Uterine Anomaly: negative Uterine Surgery (not C/S): negative Other Gynecologic Problems: negative Infection History Hx of STD: none HIV Risk Eval: low risk Hepatitis B Risk Eval: low risk Personal hx. of genital herpes: no Partner hx. of genital herpes: no Rash, Viral, or Febrile illness since last LMP? no Varicella/Chicken Pox Status: Previous Disease TB Risk: no Genetic History Congenital Heart Defect: Mom: no Dad: no Antonella Disease: Mom: no Dad: no Thalassemia Mom: no Dad: no Neural Tube Defect Mom: no Dad: no Down's Syndrome Mom: no Dad: no Francis-Sachs Mom: no Dad: no Sickle Cell Disease/Trait Mom: no Dad: no Hemophilia Mom: no Dad: no Muscular Dystrophy Mom: no Dad: no Cystic Fibrosis Mom: no Dad: no O'Brien Chorea Mom: no Dad: no Mental Retardation Mom: no Dad: no Fragile X Mom: no Dad: no Other Genetic/Chromosomal Disorder Mom: no Dad: no Child w/other defect Mom: no Dad: no Enviromental Exposures Enviromental Exposures Reviewed Xray Exposure: no Medication, drug, or alcohol use since LMP: no Chemical/Other Exposure: no Exposure to Cat Liter: no Hx of Parvovirus (Fifth Disease): no Occupational Exposure to Children: none Active Medications: vitamins () Current Allergies (reviewed today): VANCOMYCIN (Critical) Patient reports: pain well controlled, other (pt denies feeling lightheaded or dizzy) : doing well Objective - Vital Signs Latest vital signs: Vital Signs Temp Pulse Resp BP Pulse Ox Pulse Ox 01/07/22 10:14 88 97 01/07/22 10:09 96 H 98 05/26/22 10:07 94 H 117/62 05/26/22 10:04 69 98 05 09:59 91 H 97 05 09:54 91 H 97 01/07/22 09:49 89 97 05 09:44 93 H 97 01/07/22 09:39 92 H 97 01/07/22 09:34 94 H 97 05 09:29 97 H 97 01/07/22 09:24 96 H 96 05 09:19 97 H 96 05 09:14 98 H 97 01/07/22 09:09 98 H 95 05 09:04 104 H 98 01/07/22 09:03 100 H 124/62 94 01/07/22 08:59 100 H 96 01/07/22 08:54 106 H 99 01/07/22 08:49 104 H 97 01/07/22 08:48 100 H 124/65 01/07/22 08:44 106 H 98 01/07/22 08:39 109 H 98 01/07/22 08:34 110 H 98 05 08:33 110 H 135/63 05 08:29 111 H 97 01/07/22 08:24 111 H 99 01/07/22 08:19 107 H 99 01/07/22 08:18 104 H 133/65 01/07/22 08:14 104 H 99 01/07/22 08:09 105 H 99 01/07/22 08:04 106 H 99 01/07/22 08:03 109 H 132/92 05 08:00 105 H 120/64 05 07:59 103 H 99 05 07:54 103 H 98 05 07:49 108 H 98 05 07:48 103 H 120/64 05 07:44 107 H 98 05 07:39 114 H 98 05 07:34 114 H 100 05 07:33 110 H 107/53 01/07/22 07:29 110 H 99 05 07:24 110 H 98 05 07:19 110 H 98 05 07:18 113 H 107/53 05 07:14 110 H 98 01/07/22 07:09 111 H 98 05 07:04 111 H 99 05 07:03 110 H 111/53 01/07/22 06:59 111 H 98 01/07/22 06:54 112 H 98 01/07/22 06:49 111 H 99 01/07/22 06:48 116 H 99/52 01/07/22 06:44 103 H 99 01/07/22 06:39 107 H 98 01/07/22 06:34 106 H 98 01/07/22 06:33 108 H 120/59 01/07/22 06:29 105 H 98 01/07/22 06:24 107 H 98 01/07/22 06:19 107 H 98 01/07/22 06:18 105 H 119/57 01/07/22 06:14 106 H 98 01/07/22 06:09 107 H 98 01/07/22 06:04 107 H 98 01/07/22 06:03 106 H 120/57 01/07/22 05:59 108 H 98 01/07/22 05:54 117 H 98 01/07/22 05:49 118 H 98 01/07/22 05:48 113 H 121/56 94 01/07/22 05:44 119 H 98 01/07/22 05:39 120 H 98 01/07/22 05:34 123 H 98 01/07/22 05:29 119 H 98 01/07/22 05:24 119 H 97 01/07/22 05:19 121 H 98 01/07/22 05:14 121 H 98 01/07/22 05:09 120 H 99 01/07/22 05:04 120 H 99 01/07/22 05:03 121 H 117/53 01/07/22 04:59 119 H 98 01/07/22 04:54 117 H 98 01/07/22 04:49 117 H 98 01/07/22 04:48 116 H 120/58 01/07/22 04:44 124 H 98 01/07/22 04:39 117 H 99 01/07/22 04:34 118 H 98 01/07/22 04:33 115 H 124/63 05 04:29 112 H 99 01/07/22 04:24 118 H 100 01/07/22 04:19 117 H 98 05 04:18 114 H 129/63 01/07/22 04:14 119 H 98 05 04:09 118 H 99 01/07/22 04:04 117 H 99 01/07/22 04:03 116 H 123/61 01/07/22 03:59 118 H 98 05 03:54 118 H 98 01/07/22 03:49 118 H 97 01/07/22 03:48 115 H 126/67 01/07/22 03:44 119 H 97 01/07/22 03:39 109 H 97 01/07/22 03:34 107 H 98 01/07/22 03:33 107 H 127/69 01/07/22 03:29 107 H 98 01/07/22 03:24 106 H 98 01/07/22 03:19 107 H 98 01/07/22 03:18 107 H 135/74 01/07/22 03:14 107 H 98 01/07/22 03:09 109 H 98 01/07/22 03:06 121 H 83 L 01/07/22 03:04 110 H 93 01/07/22 03:03 111 H 134/73 01/07/22 02:59 109 H 94 05 02:54 108 H 95 01/07/22 02:49 105 H 96 01/07/22 02:48 104 H 145/79 01/07/22 02:47 103 H 94 01/07/22 02:44 105 H 96 01/07/22 02:39 105 H 97 01/07/22 02:34 108 H 98 01/07/22 02:33 108 H 154/82 93 01/07/22 02:29 109 H 97 01/07/22 02:24 107 H 98 05 02:19 109 H 98 05 02:18 110 H 149/98 01/07/22 02:14 125 H 98 01/07/22 02:12 106 H 93 01/07/22 02:09 109 H 96 01/07/22 02:05 121 H 94 05 02:04 114 H 95 01/07/22 02:03 103 H 152/96 01/07/22 01:59 105 H 97 05 01:54 104 H 96 05/26/22 01:49 104 H 97 01/07/22 01:48 102 H 143/85 01/07/22 01:44 103 H 97 01/07/22 01:39 106 H 96 01/07/22 01:34 109 H 96 01/07/22 01:31 101 H 92 01/07/22 01:29 102 H 96 01/07/22 01:26 100 H 144/84 01/07/22 01:24 100 H 97 01/07/22 01:21 102 H 141/84 01/07/22 01:19 102 H 97 01/07/22 01:16 100 H 144/86 01/07/22 01:14 102 H 98 01/07/22 01:11 98.9 F 101 H 149/89 01/07/22 01:09 108 H 98 01/07/22 01:06 151/98 01/07/22 01:04 103 H 97 01/07/22 01:01 103 H 152/91 01/07/22 00:59 106 H 96 01/07/22 00:56 104 H 138/87 01/07/22 00:54 102 H 97 01/07/22 00:51 103 H 135/86 01/07/22 00:49 103 H 98 01/07/22 00:46 100 H 132/81 01/07/22 00:44 105 H 98 01/07/22 00:39 107 H 99 01/07/22 00:37 102 H 93 01/07/22 00:34 103 H 97 01/07/22 00:32 103 H 109/73 01/07/22 00:29 98 H 98 01/07/22 00:26 100 H 126/79 01/07/22 00:24 100 H 97 01/07/22 00:22 102 H 123/82 01/07/22 00:19 115 H 98 01/07/22 00:15 116 H 115/61 01/07/22 00:14 107 H 100 01/07/22 00:10 104 H 120/66 01/07/22 00:09 107 H 98 01/07/22 00:04 100 H 98 01/07/22 00:00 96 H 136/65 01/06/22 23:59 100 H 97 01/06/22 23:54 107 H 96 05/22 23:52 113 H 93 05/22 23:49 105 H 97 052522 23:46 117 H 140/63 75 L 05 23:44 108 H 98 05 23:39 111 H 88 05 23:34 112 H 98 05 23:32 107 H 161/74 91 0525 23:29 111 H 98 0522 23:25 103 H 94 0522 23:24 97 H 97 0522 23:19 103 H 97 05 23:16 102 H 133/82 05 23:14 101 H 98 05 23:13 101 H 92 05 23:09 101 H 98 05 23:04 100 H 97 05 23:01 103 H 147/91 05 22:59 102 H 97 05 22:54 101 H 96 0522 22:50 108 H 92 05 22:49 99 H 98 0522 22:46 104 H 122/84 05 22:44 97 H 97 0522 22:39 99 H 95 0522 22:34 95 H 98 0522 22:31 96 H 130/78 0522 22:29 97 H 98 0522 22:24 101 H 99 05/25/22 22:19 100 H 98 05/25/22 22:14 109 H 94 052522 22:12 106 H 94 052522 22:09 101 H 95 05/25/22 22:07 101 H 94 0525/22 22:04 102 H 95 05/25/22 22:01 101 H 94 05/25/22 21:58 101 H 96 05/25/22 21:53 105 H 96 05/25/22 21:48 100 H 93 05/25/22 21:46 100 H 104/58 76 L 0522 21:43 100 H 94 05/25/22 21:39 99 H 94 05/25/22 21:38 100 H 93 05/25/22 21:33 102 H 96 05/25/22 21:31 100 H 94 05/25/22 21:28 100 H 96 05 21:23 98 H 97 05 21:18 98 H 97 05 21:16 93 H 93 05 21:13 98 H 96 05 21:10 108 H 88 01/06/22 21:08 92 H 98 05 21:03 92 H 98 05 21:02 92 H 116/65 05 21:00 98.3 F 05 20:58 93 H 98 01/06/22 20:53 91 H 97 01/06/22 20:48 92 H 97 01/06/22 20:46 90 120/65 05 20:43 91 H 98 01/06/22 20:38 100 H 97 01/06/22 20:33 94 H 95 01/06/22 20:31 90 119/74 05 20:28 100 H 95 01/06/22 20:23 94 H 96 01/06/22 20:21 96 H 94 01/06/22 20:18 97 H 110/80 86 05 20:15 97 H 92 01/06/22 20:13 93 H 93 01/06/22 20:09 96 H 94 01/06/22 20:08 95 H 96 01/06/22 20:03 102 H 97 01/06/22 20:02 105 H 130/63 94 05 19:58 102 H 96 01/06/22 19:53 100 H 97 01/06/22 19:48 104 H 96 05 19:47 100 H 128/64 05 19:45 136 H 91 05 19:43 99 H 97 05 19:38 99 H 97 05 19:33 99 H 95 05 19:31 98 H 121/66 05 19:28 96 H 94 05 19:23 99 H 95 05 19:21 98 H 94 05 19:18 98 H 95 05 19:15 99 H 116/61 94 05 19:13 97 H 96 05 19:08 97 H 93 05/25/22 19:04 98 H 16 95 01/06/22 19:03 97 H 94 01/06/22 19:02 100 01/06/22 19:01 97 H 117/62 01/06/22 18:58 99 H 96 01/06/22 18:57 99 H 94 01/06/22 18:53 97 H 94 01/06/22 18:50 97 H 94 01/06/22 18:48 98 H 94 01/06/22 18:47 96 H 115/57 05 18:44 95 H 94 01/06/22 18:43 96 H 98 01/06/22 18:38 97 H 96 01/06/22 18:37 93 H 94 01/06/22 18:33 96 H 97 01/06/22 18:32 93 H 114/57 88 01/06/22 18:28 94 H 95 01/06/22 18:26 96 H 94 01/06/22 18:23 95 H 95 01/06/22 18:18 95 H 97 01/06/22 18:15 95 H 106/58 01/06/22 18:13 95 H 96 01/06/22 18:08 95 H 97 01/06/22 18:03 97 H 96 01/06/22 18:02 96 H 110/58 87 01/06/22 17:58 99 H 96 01/06/22 17:56 94 H 93 01/06/22 17:53 96 H 95 01/06/22 17:50 95 H 94 01/06/22 17:48 95 H 95 01/06/22 17:47 97 H 113/60 01/06/22 17:44 93 H 94 01/06/22 17:43 95 H 95 01/06/22 17:39 92 01/06/22 17:38 95 H 97 01/06/22 17:33 90 96 01/06/22 17:31 92 H 119/66 92 01/06/22 17:28 88 96 01/06/22 17:23 94 H 98 01/06/22 17:18 93 H 99 01/06/22 17:15 95 H 117/66 05 17:13 94 H 98 01/06/22 17:08 94 H 98 01/06/22 17:03 91 H 96 05/22 17:00 98.3 F 95 H 116/66 05 16:58 92 H 98 01/06/22 16:53 87 98 01/06/22 16:50 82 93 01/06/22 16:48 97 H 96 01/06/22 16:45 92 H 92 01/06/22 16:43 101 H 98 01/06/22 16:38 91 H 97 01/06/22 16:35 87 92 01/06/22 16:33 99 H 97 01/06/22 16:32 100 H 134/84 05 16:28 97 H 96 01/06/22 16:27 91 H 123/88 89 05 16:23 93 H 97 01/06/22 16:20 91 H 94 01/06/22 16:18 89 95 01/06/22 16:14 90 92 05 16:13 91 H 95 01/06/22 16:08 89 95 01/06/22 16:03 91 H 95 01/06/22 16:01 87 91 05 15:58 88 96 01/06/22 15:53 89 96 01/06/22 15:48 85 96 01/06/22 15:43 96 H 97 01/06/22 15:38 96 H 98 01/06/22 15:33 82 95 01/06/22 15:31 86 130/78 85 05 15:28 92 H 96 01/06/22 15:23 91 H 95 01/06/22 15:19 90 94 01/06/22 15:18 86 97 01/06/22 15:16 90 127/78 05 15:13 95 H 97 01/06/22 15:08 91 H 97 01/06/22 15:03 89 97 01/06/22 15:01 97 H 125/77 93 05 14:58 93 H 129/86 98 05 14:55 92 H 122/76 05 14:54 90 122/76 05 14:53 90 98 05/ 14:51 90 120/67 05 14:48 93 H 138/84 98 05 14:45 88 141/88 05 14:44 90 145/86 05 14:43 92 H 140/84 93 05 14:38 93 H 99 05 14:33 92 H 93 05 14:28 103 H 95 05 14:25 99 H 94 05 14:23 93 H 97 05 14:18 89 95 05 14:13 100 H 161/100 96 05 14:08 89 96 05 14:03 86 97 01/06/22 13:58 93 H 96 05 13:53 92 H 96 01/06/22 13:49 93 H 144/92 05 13:48 94 H 98 01/06/22 13:44 93 H 94 01/06/22 13:43 91 H 137/101 96 05 13:38 104 H 98 05 13:33 87 97 05 13:28 104 H 96 05 13:23 98 H 97 05 13:18 91 H 97 01/06/22 13:13 88 142/91 100 05 13:11 88 136/88 05 13:08 98 H 100 05 13:03 99 H 100 05 13:00 98.6 F 01/06/22 12:58 95 H 99 05 12:53 99 H 100 05 12:48 98 H 100 05 12:43 96 H 161/96 100 05 12:38 101 H 100 05 12:33 100 H 100 05 12:28 100 H 100 05 12:23 101 H 100 05 12:18 99 H 100 05 12:13 100 H 100 05 12:12 102 H 119/69 05 12:08 104 H 100 05 12:03 100 H 100 05 11:58 104 H 100 05 11:53 100 H 100 05 11:48 104 H 97 05 11:43 99 H 95 05 11:42 88 112/61 01/06/22 11:38 93 H 95 01/06/22 11:35 89 94 01/06/22 11:33 90 95 01/06/22 11:28 99 H 95 01/06/22 11:24 98 H 94 01/06/22 11:23 98 H 95 01/06/22 11:18 98 H 94 01/06/22 11:17 97 H 94 01/06/22 11:13 106 H 97 01/06/22 11:12 97 H 110/57 01/06/22 11:08 98 H 95 01/06/22 11:03 100 H 96 01/06/22 10:59 99 H 116/57 01/06/22 10:58 102 H 96 01/06/22 10:53 100 H 96 01/06/22 10:48 108 H 97 01/06/22 10:43 104 H 98 01/06/22 10:38 110 H 97 01/06/22 10:33 105 H 95 01/06/22 10:32 104 H 94 01/06/22 10:29 101 H 134/78 01/06/22 10:28 103 H 97 01/06/22 10:23 102 H 96 01/06/22 10:18 102 H 96 Intake and Output 01/06/22 01/07/22 01/07/22 23:59 07:59 15:59 Intake Total 1189.900 580.833 Output Total 700 1000 Balance 489.900 -419.167 Intake: IV 1189.900 580.833 MAGNESIUM SULFATE 40GM/ 982.5 580.833 1000ML 40 gm In 1,000 ml @ 2 GM/HR 50 mls/hr IV DIRECT [facility] Rx#:[id number] PITOCin/NS 30 UNIT/500ML 207.400 30 units In 500 ml @ 4 mls/hr IV TITR [facility] Rx#: [id number] Output: Urine 700 1000 Indwelling Catheter 700 1000 Other: Total, Output Amount 400 1000 # Voids Indwelling Catheter 1 1 Estimated Blood Loss 800 - Exam Breasts: Present: normal Cardiovascular: Present: Regular rate Lungs: Present: Normal air movement Abdomen: Present: normal appearance, soft. Absent: distention, tenderness Vulva: both: laceration/episiotomy (well approximated, no edema) Uterus: Present: normal, firm, fundal height below umbilicus Extremities: Present: normal Comments: scant lochia noted on ventura-pad - Labs Labs: Abnormal lab results 01/06/22 01/06/22 01/07/22 Range/Units 15:37 20:37 02:50 Hgb (10.1-14.3) gm/dl Hct (30.3-42.9) % Magnesium 5.30 H 6.10 H 5.70 H (1.7-2.3) mg/dL 01/07/22 01/07/22 01/07/22 Range/Units 02:50 09:09 09:09 Hgb 8.3 L 6.8 L (10.1-14.3) gm/dl Hct 25.5 L 19.7 L* (30.3-42.9) % Magnesium 4.70 H (1.7-2.3) mg/dL
[2022-01-07] MEDS ORDERED: diphenhydrAMINE 50 MG/ML VIAL IV SCH (10:18)
[2022-01-07] MEDS ORDERED: ACETAMINOPHEN 325 MG TAB PO SCH (10:18)
[2022-01-07] MEDS ORDERED: SODIUM CHLORIDE 0.9% 500 ML 500 ML IV SCH (10:18)
[2022-01-07] MEDS: FERROUS SULFATE 325 MG TAB PO SCH ×2 (10:51→21:55)
[2022-01-07] MEDS: PRENATAL VIT27-FE FUMARATE-FOLIC ACID VIT TAB PO SCH (10:51)
--- NOTE | 2022-01-07 11:08 | Post Anesthesia Evaluation ---
- Post Anesthesia Evaluation Patient Participated: Yes Airway Patent: Yes Stable Respiratory Function: Yes Nausea/Vomiting: No Temp > 96.8F: Yes Pain Manageable: Yes Adequeate Hydration: Yes Anesthesia Complications: No Block Receding Appropriately: Yes Patient on Ventilator: No
[2022-01-07 17:58] LABS: Hematocrit 24.8 % (30.3-42.9); Hemoglobin 8.3 gm/dl (10.1-14.3)
[2022-01-07] MEDS ORDERED: LACTATED RINGERS 1,000 ML ONE (19:07)
[2022-01-08] MEDS ORDERED: TETANUS,DIPH,PERTUSS(ACELL) VACCINE 0.5 ML SYRINGE IM ONE ×2 (00:41→06:00)
[2022-01-08] MEDS: IBUPROFEN 800 MG TAB PO SCH ×3 (04:53→21:14)
--- NOTE | 2022-01-08 07:50 | Progress Note ---
Assessment and Plan A: 21 y.o. s/p , pre eclampsia. S/p magnesium infusion. - Patient Problems (1) Pre-eclampsia, delivered Current Visit: Yes Status: Acute Plan to address problem: Continue with care. Continue to monitor blood pressures. Monitor for s/sx of worsening pre eclampsia. Continue with Labetalol 300 mg BID. If blood pressures remain stable will discharge home on 01/09. Subjective - Subjective Date of service: 01/08/22 Principal diagnosis: Preeclampsia, s/p Mag, s/p with hemmorhage Interval history: Pt denies MEAD. blurred vision, spots before her eyes, chest pain, shortness of breath, upper abdominal pain, feeling dizzy or lightheaded. Pt is breast and bottle feeding and is unsure regarding control. Pt is aware that she will need to return to the office in 1 week for son's circumcision and her blood pressure check. Patient reports: appetite normal, voiding normally, pain well controlled, ambulating normally [place]: doing well Objective - Vital Signs Latest vital signs: Vital Signs Temp Pulse Resp BP BP Pulse Ox Pulse Ox 01/08/22 04:53 18 01/08/22 04:48 98.2 F 112/58 01/08/22 04:31 97.7 F 92 H 18 124/67 96 01/08/22 00:45 98.7 F 88 18 117/68 100 100 01/08/22 00:11 70 88 01/08/22 00:09 90 99 01/08/22 00:04 90 99 01/08/22 00:00 98.7 F 18 01/07/22 23:59 95 H 98 01/07/22 23:54 95 H 97 01/07/22 23:49 95 H 98 01/07/22 23:46 92 H 110/63 01/07/22 23:44 92 H 98 01/07/22 23:39 91 H 98 01/07/22 23:34 95 H 97 01/07/22 23:29 98 H 99 01/07/22 23:24 95 H 100 01/07/22 23:19 98 H 100 01/07/22 23:17 100 H 117/59 01/07/22 23:14 96 H 99 01/07/22 23:09 97 H 99 01/07/22 23:04 98 H 100 05 22:59 106 H 99 05 22:54 98 H 98 05 22:49 96 H 99 05 22:44 98 H 100 05 22:39 92 H 100 05 22:34 99 H 99 05 22:29 100 H 99 05 22:24 89 100 05 22:19 90 100 05 22:14 92 H 100 05 22:09 90 100 05 22:08 90 125/60 05 22:04 93 H 99 05 21:59 94 H 97 05 21:54 95 H 97 05 21:49 96 H 97 05 21:46 95 H 108/57 05 21:44 96 H 97 05 21:39 96 H 97 05 21:34 96 H 98 05 21:29 98 H 97 05 21:24 98 H 98 05 21:19 103 H 98 05 21:14 96 H 98 05 21:09 97 H 99 05 21:04 106 H 99 05 20:59 95 H 99 05 20:55 96 H 119/57 05 20:54 101 H 99 05 20:49 100 H 100 05 20:46 89 115/59 05 20:44 90 99 05 20:39 89 99 05 20:34 90 99 05 20:30 97.9 F 18 99 05 20:29 90 99 05 20:24 93 H 99 05 20:19 91 H 99 05 20:14 94 H 99 05 20:09 99 H 99 05 20:04 100 H 99 05 19:59 100 H 99 05 19:54 96 H 99 05 19:49 100 H 99 05 19:46 99 H 123/57 05 19:44 98 H 99 05 19:39 98 H 98 01/07/22 19:34 98 H 99 05 19:29 95 H 98 01/07/22 19:24 99 H 98 05 19:19 102 H 98 01/07/22 19:14 100 H 98 01/07/22 19:09 96 H 99 01/07/22 19:04 106 H 99 01/07/22 18:59 103 H 98 01/07/22 18:54 95 H 97 01/07/22 18:49 94 H 98 01/07/22 18:46 92 H 102/52 01/07/22 18:44 94 H 97 01/07/22 18:39 94 H 98 01/07/22 18:34 92 H 98 01/07/22 18:29 91 H 98 01/07/22 18:24 91 H 98 01/07/22 18:19 98 H 99 01/07/22 18:14 97 H 97 01/07/22 18:09 97 H 97 01/07/22 18:04 98 H 97 01/07/22 17:59 98 H 97 01/07/22 17:54 96 H 97 01/07/22 17:49 98 H 97 01/07/22 17:46 98 H 110/58 01/07/22 17:44 101 H 97 01/07/22 17:39 98 H 97 01/07/22 17:34 104 H 99 01/07/22 17:29 102 H 98 01/07/22 17:24 108 H 98 01/07/22 17:19 100 H 98 01/07/22 17:14 99 H 98 01/07/22 17:09 98 H 98 01/07/22 17:04 104 H 99 01/07/22 16:59 101 H 98 01/07/22 16:54 97 H 98 05 16:49 100 H 98 05 16:45 101 H 136/80 05 16:44 96 H 97 01/07/22 16:39 104 H 97 05 16:34 102 H 97 01/07/22 16:29 101 H 98 05 16:24 103 H 94 05 16:20 98.9 F 20 05/26/22 16:19 87 121/57 99 01/07/22 16:14 86 96 01/07/22 16:09 85 97 01/07/22 16:04 84 97 01/07/22 15:59 86 97 01/07/22 15:54 87 97 01/07/22 15:49 85 97 01/07/22 15:46 86 121/66 01/07/22 15:44 83 98 01/07/22 15:39 87 98 01/07/22 15:34 91 H 98 01/07/22 15:29 89 98 01/07/22 15:24 87 98 01/07/22 15:19 91 H 98 01/07/22 15:14 94 H 98 01/07/22 15:09 91 H 98 01/07/22 15:04 91 H 99 01/07/22 14:59 95 H 98 01/07/22 14:54 96 H 99 01/07/22 14:49 90 100 01/07/22 14:44 96 H 99 01/07/22 14:43 95 H 124/62 01/07/22 14:39 81 98 01/07/22 14:36 81 117/58 01/07/22 14:34 88 99 01/07/22 14:31 86 113/53 01/07/22 14:30 98.0 F 86 99 01/07/22 14:24 89 99 01/07/22 14:19 99 H 100 01/07/22 14:14 104 H 100 01/07/22 14:13 100 H 143/77 01/07/22 14:09 93 H 98 01/07/22 14:04 90 99 01/07/22 14:00 97.9 F 20 01/07/22 13:59 98 H 152/60 99 01/07/22 13:54 94 H 99 01/07/22 13:49 96 H 99 01/07/22 13:44 91 H 98 01/07/22 13:43 95 H 164/70 05 13:39 96 H 99 01/07/22 13:34 101 H 99 01/07/22 13:29 104 H 142/82 98 01/07/22 13:24 104 H 99 01/07/22 13:19 93 H 137/65 98 01/07/22 13:14 94 H 99 01/07/22 13:09 95 H 99 01/07/22 13:04 98 H 99 01/07/22 13:00 97.9 F 20 01/07/22 12:59 101 H 99 05 12:58 100 H 126/66 01/07/22 12:55 100 H 98 01/07/22 12:49 108 H 99 01/07/22 12:44 90 99 05 12:43 100 H 131/63 05 12:40 87 99 01/07/22 12:35 90 99 01/07/22 12:30 89 99 05 12:29 86 133/63 05 12:25 90 99 01/07/22 12:20 92 H 98 01/07/22 12:15 105 H 98 01/07/22 12:09 92 H 100 01/07/22 12:04 88 97 01/07/22 12:00 98.6 F 18 01/07/22 11:59 89 97 01/07/22 11:58 90 116/61 05 11:54 90 97 01/07/22 11:49 89 97 01/07/22 11:44 91 H 97 01/07/22 11:43 87 115/58 01/07/22 11:39 89 98 05 11:34 91 H 98 01/07/22 11:29 91 H 98 01/07/22 11:28 88 120/60 01/07/22 11:24 89 98 01/07/22 11:19 91 H 98 01/07/22 11:14 98.4 F 93 H 20 99 01/07/22 11:13 90 102/81 05 11:09 90 99 05 11:04 91 H 99 01/07/22 11:03 77 127/65 05 11:02 98.9 F 88 20 126/57 99 05 10:59 85 100 05 10:58 91 H 126/57 05 10:54 99 H 98 05 10:49 89 98 05 10:44 87 98 01/07/22 10:39 101 H 98 01/07/22 10:34 93 H 99 01/07/22 10:29 90 98 01/07/22 10:24 87 97 01/07/22 10:19 91 H 96 01/07/22 10:14 88 97 01/07/22 10:09 96 H 98 01/07/22 10:07 94 H 117/62 01/07/22 10:04 69 98 01/07/22 09:59 91 H 97 01/07/22 09:54 91 H 97 01/07/22 09:49 89 97 01/07/22 09:44 93 H 97 01/07/22 09:39 92 H 97 01/07/22 09:34 94 H 97 01/07/22 09:29 97 H 97 01/07/22 09:24 96 H 96 01/07/22 09:19 97 H 96 01/07/22 09:14 98 H 97 01/07/22 09:09 98 H 95 01/07/22 09:04 104 H 98 01/07/22 09:03 100 H 124/62 94 01/07/22 08:59 100 H 96 01/07/22 08:54 106 H 99 01/07/22 08:49 104 H 97 01/07/22 08:48 100 H 124/65 01/07/22 08:44 106 H 98 01/07/22 08:39 109 H 98 01/07/22 08:34 110 H 98 01/07/22 08:33 110 H 135/63 01/07/22 08:29 111 H 97 01/07/22 08:24 111 H 99 01/07/22 08:19 107 H 99 01/07/22 08:18 104 H 133/65 01/07/22 08:14 104 H 99 01/07/22 08:09 105 H 99 01/07/22 08:04 106 H 99 01/07/22 08:03 109 H 132/92 01/07/22 08:00 99.4 F 105 H 20 120/64 99 01/07/22 07:59 103 H 99 01/07/22 07:54 103 H 98 Intake and Output 01/07/22 01/08/22 01/08/22 22:59 06:59 14:59 Intake Total 300 Output Total 1000 1700 Balance -1000 -1400 Intake: Intake, Free Water 300 Output: Urine 1000 1700 Indwelling Catheter 1000 1100 Void 600 Other: Total, Output Amount 150 600 # Voids Void 1 - Exam Cardiovascular: Present: Normal S1, Normal S2 Lungs: Present: Clear to auscultation Abdomen: Present: normal appearance, soft Uterus: Present: normal, firm Extremities: Present: normal Deep Tendon Reflex Grade: Normal +2 Comments: Minimal bleeding noted. - Labs Labs: Abnormal lab results 01/04/22 01/07/22 01/07/22 Range/Units 16:12 09:09 09:09 Hgb 6.8 L (10.1-14.3) gm/dl Hct 19.7 L* (30.3-42.9) % Magnesium 4.70 H (1.7-2.3) mg/dL Crossmatch See Detail 01/07/22 01/07/22 Range/Units 17:25 17:25 Hgb 8.3 L (10.1-14.3) gm/dl Hct 24.8 L (30.3-42.9) % Magnesium 4.20 H (1.7-2.3) mg/dL Crossmatch
[2022-01-08] MEDS: FERROUS SULFATE 325 MG TAB PO SCH ×2 (09:06→21:14)
[2022-01-08] MEDS: PRENATAL VIT27-FE FUMARATE-FOLIC ACID VIT TAB PO SCH (09:06)
[2022-01-09] MEDS: IBUPROFEN 800 MG TAB PO SCH (05:52)
--- NOTE | 2022-01-09 06:35 | Discharge Summary ---
Providers - Providers Date of Admission: 01/04/22 15:18 Date of discharge: 01/09/22 Attending physician: CHLOE SMITH MD 01/07/22 03:41 Consult to Policy Loan Calculator [CONS] Routine Reason For Exam: assistance with , SNS Primary care physician: CHLOE SMITH MD Hospitalization Reason for admission: induction of labor Delivery: Laceration: 2nd degree, other (labial) Other procedures: none complications: none Discharge diagnosis: IUP at term delivered [place] baby: male Pertinent studies: Pt denies feeling dizzy or lightheaded, chest pain, shortness of breath, upper abdominal pain, HAs, and spots before her eyes. We discussed how to take a blood pressure at home, when to call the manager investigations provider with questions/concerns, and to continue taking her Labetalol 300mg twice daily until she is told its okay to discontinue the medication. Hospital course: S: Pt is doing well. Voiding, passing flatus, and ambulating without difficulty. BC: Undecided. O: VSS. H/H 8.3/24.8 (PPH, pt currently asymptomatic). Blood pressure ranges have been 120-130's/60-70's. Adequate I&O's. Fundus firm, minimal bleeding noted. A: 21 y.o. s/p , PPH, magnesium infusion d/t Pre Eclampsia. In good condition . P: Discharge home with instructions. Pt to schedule her blood pressure check in the office in 1 wk. Pt to schedule her son's circumcision in the office in 1 wk. Condition at discharge: Good Disposition: 01 HOME / SELF CARE / HOMELESS - Discharge Diagnoses (1) Pre-eclampsia, delivered Status: Acute Plan - Discharge Medications Prescriptions: Docusate Sodium [Colace] 100 mg PO BID PRN #60 capsule PRN Reason: Constipation Lidocain2.5%/Prilocai2.5% [Emla] 1 applic TP ONCE #1 tube Ferrous Sulfate [Feosol 325 MG tab] 325 mg PO QDAY #30 tablet Labetalol HCl [Labetalol 300mg TAB] 300 mg PO BID #60 Ibuprofen [Motrin] 800 mg PO Q8HR PRN #20 tablet PRN Reason: Pain, Moderate (4-6) - Provider Discharge Summary Activity: routine, no sex for 6 weeks, no heavy lifting 4 weeks, no strenuous exercise Diet: routine Instructions: routine Additional instructions: [] Smoking cessation referral if applicable(refer to patient education folder for contact #) [] Refer to [facility] Booklet Call your doctor immediately for: * Fever > 100.5 * Heavy vaginal bleeding ( >1 pad per hour) * Severe persistent headache * Shortness of breath * Reddened, hot, painful area to leg or breast * Drainage or odor from incision. * Keep incision clean and dry at all times and follow doctor's instructions regarding bathing/showering - Follow up plan Follow up: CHLOE SMITH MD [Primary Care Provider] - 7 Days (- Congratulations on the of your baby boy! - Thank you for allowing us to take care of you! - Please take all medication as prescribed. - Please take your blood pressure at least once a day. - If you blood pressure is 140/90 or greater and/or you develop chest pain, feelings like you can't catch your breath, pain in your upper belly, headaches not relieved by Tylenol, spots before your eyes, you need to call the manager investigations provider immediately and head to [facility] ER to be evaluated. - Please schedule your son's circucumcision and your blood pressure check in the office in 1 week. - You have been given EMLA cream for your son's circumcision. Please bring this cream to the office and do not use this cream at home. - Should you have any question or concerns after discharge, please do not hesitate to call the office at [phone]. )
[2022-01-09 11:25] VITALS: BP 139/81
== END 2022-01-09 12:00 | disposition home or self-care (01) | DRG 774 ==
LOC: TRG 15:17 → LD 15:18 → TRG 16:07 → OB 01-08 00:35
PROVIDERS: ADMIT Student in an Organized Health Care Education/Training Program; ATTEND Student in an Organized Health Care Education/Training Program
PROC: 10E0XZZ Delivery of Products of Conception, External Approach (ICD-10-PCS; principal; 2022-01-07)
PROC: 0KQM0ZZ Repair Perineum Muscle, Open Approach (ICD-10-PCS; 2022-01-07)
PROC: 10907ZC Drainage of Amniotic Fluid, Therapeutic from Products of Conception, Via Natural or Artificial Opening (ICD-10-PCS; 2022-01-07)
PROC: 3E0R3BZ Introduction of Anesthetic Agent into Spinal Canal, Percutaneous Approach (ICD-10-PCS; 2022-01-07)
PROC: 00HU33Z Insertion of Infusion Device into Spinal Canal, Percutaneous Approach (ICD-10-PCS; 2022-01-07)
PROC: 30233N1 Transfusion of Nonautologous Red Blood Cells into Peripheral Vein, Percutaneous Approach (ICD-10-PCS; 2022-01-07)
PROC: 3E0234Z Introduction of Serum, Toxoid and Vaccine into Muscle, Percutaneous Approach (ICD-10-PCS; 2022-01-08)
DX: O14.94 Unspecified pre-eclampsia, complicating childbirth (principal); O72.1 Other immediate postpartum hemorrhage; Z3A.37 37 weeks gestation of pregnancy; Z20.822 Contact with and (suspected) exposure to COVID-19; O99.214 Obesity complicating childbirth; O70.1 Second degree perineal laceration during delivery; Z37.0 Single live birth; Z23 Encounter for immunization
CPT/HCPCS: 36415; 59025; 59200; 81001; 82565; 82570; 83615; 83735; 84156; 84450; 84460; 84550; 85014; 85018; 85027; 86592; 86850; 86900; 86901; 86920; 88307; 90471; 90715; 96360; G0378; J3490; J0360; J1200; J2405; J2590; J3010; J3475; J7120; P9016; Q0169; U0003

== ENCOUNTER 2022-01-11 09:30 | Emergency (ER) | payer MEDICAID ==
[2022-01-11 09:40] VITALS: BP 157/101
[2022-01-11 10:26] LABS: Alanine Aminotransferase 16 units/L (7-56); Albumin 3.4 g/dL (3.9-5); Blood Urea Nitrogen 5 mg/dL (7-17); Calcium 8.9 mg/dL (8.4-10.2); Hemolysis Index 3
[2022-01-11 10:28] LABS: BUN/Creatinine Ratio 8
[2022-01-11 10:59] LABS: Hematocrit 26.3 % (30.3-42.9); Hemoglobin 8.5 gm/dl (10.1-14.3); Mean Corpuscular HGB Conc 33 % (30-34); Mean Corpuscular Volume 95 fl (79-97); Platelet Count 378 K/mm3 (140-440); Red Blood Count 2.78 M/mm3 (3.65-5.03); Red Cell Distribution Width 14.6 % (13.2-15.2)
--- NOTE | 2022-01-11 11:56 | XRay Report ---
CHEST 2 VIEWS INDICATION / CLINICAL INFORMATION: SOB. Patient had a baby 5 days ago. COMPARISON: None available. FINDINGS: SUPPORT DEVICES: None. HEART / MEDIASTINUM: There is borderline cardiomegaly. Pulmonary vasculature is normal. LUNGS / PLEURA: No significant pulmonary or pleural abnormality. No pneumothorax. ADDITIONAL FINDINGS: No significant additional findings. IMPRESSION: Borderline cardiomegaly without acute pulmonary disease. Signer Name: Zackery Strauss MD Signed: 01/11/2022 11:52 AM Workstation Name: [id number]
[2022-01-11 12:36] LABS: Total Cells Counted 100
[2022-01-11 12:37] LABS: Basophils % (Manual) 0 % (0.0-1.8)
[2022-01-11 12:41] LABS: Anisocytosis 1+; Hypochromasia 1+; Ovalocytes Rare; Poikilocytosis Few
[2022-01-11 12:42] LABS: Helmet Cells Rare; Large Platelets Rare; Platelet Estimate Consistent w Auto; Tear Drop Cells Rare
[2022-01-11 18:46] LABS: Basophils # (Auto) 0.1 K/mm3 (0.0-0.1); Eosinophils # (Auto) 0.3 K/mm3 (0.0-0.4); Eosinophils % (Auto) 2.4 % (0.0-4.3); Monocytes # (Auto) 0.5 K/mm3 (0.0-0.8)
--- NOTE | 2022-01-11 20:17 | Electrocardiograph Report ---
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
== END 2022-01-11 17:21 | disposition left against medical advice (07) ==
LOC: ED 09:30
DX: R06.02 Shortness of breath (principal); Z53.21 Procedure and treatment not carried out due to patient leaving prior to being seen by health care provider
CPT/HCPCS: 36415; 71046; 80053; 84484; 85007; 85025; 85379; 93005